=== PATIENT | female | born 1965 | race Caucasian/White ===

== ENCOUNTER 2019-08-18 12:38 | Emergency (ER) | payer OTHER, SELFPAY ==
--- NOTE | ~2019-08-18 | CT_ITS ---
EXAMINATION: CT abdomen pelvis w con DATE: 08/18/2019 13:59 INDICATION: Abdominal pain TECHNIQUE: Computed tomography (CT) of the abdomen and pelvis was performed with 100 cc Omnipaque 350 intravenous contrast. Automated exposure control and iterative reconstruction technique were employe d. Exam dose: 326.85 mGy-cm total exam DLP. COMPARISON: 07/29/2017 CT abdomen pelvis FINDINGS: Fat-containing right foramen of Bochdalek hernia. The lung bases are clear of infiltrate or consolidation. Status post gastric bypass surgery. Status post cholecystectomy. No hepatic space-occupying mass lesion is evident. There are calcified splenic granulomas. Small nons pecific hypoenhancing areas of the spleen are noted. The spleen measures almost 13 cm height, borderl ine enlarged. No hepatic or pancreatic space-occupying mass lesion is detected. Pancreatic calcifications, consiste nt with chronic pancreatitis. Normal morphology of the adrenal glands. No renal mass lesion except for stable approximately 10 mm left renal cyst.. No urinary tract calculu s or hydroureteronephrosis. There is diffuse prominence of the urinary bladder wall. Status post hysterectomy. The adnexal areas are unremarkable. There is mild atherosclerotic calcification of the abdominal aorta and no evidence of aneurysm. No in traperitoneal or retroperitoneal or pelvic mass lesion or adenopathy or ascites is detected. No bowel obstruction or intraperitoneal free air. Normal appendix. No suspicious osteolytic or osteoblastic lesions. IMPRESSION: Status post gastric bypass surgery Status post cholecystectomy Status post hysterectomy Borderline splenomegaly Chronic pancreatitis 10 mm left renal cyst Reviewed, dictated and finalized at [facility]. Reviewed, dictated and finalized at location [facility]. R PILOT
[2019-08-18 13:10] VITALS: BP 162/90; PULSE 74; RESP 16; TEMP 36.6; O2SAT 96
[2019-08-18 13:28] LABS: Basophils Percent Auto 0.4 % (0.2-1.2); Eosinophils Absolute Auto 0.1 K/mm3 (0-0.3); Eosinophils Percent Auto 2.2 % (0-4.4); Hematocrit 41.1 % (37.0-47.0); Hemoglobin 14.5 g/dL (12.0-15.0); Immature Granulocyte Absolute 0.02 K/mm3 (0.00-0.031); Immature Granulocyte Percent A 0.4 % (0-0.5); Lymphocytes Absolute Auto 1.77 K/mm3 (0.9-3.2); Lymphocytes Percent Auto 35.1 % (18.3-44.2); Mean Corpuscular HGB Conc 35.3 g/dl (32-36); Mean Platelet Volume 9.4 fl (7.4-10.4); Monocytes Absolute Auto 0.3 K/mm3 (0.1-0.6); Monocytes Percent Auto 5.2 % (2.6-8.5); Neutrophils Absolute Auto 2.9 K/mm3 (1.3-6.7); Neutrophils Percent Auto 56.7 % (45.5-73.1); Platelet Count Result 179 k/mm3 (150-375); Red Blood Count 4.67 M/mm3 (4.2-5.4)
--- NOTE | 2019-08-18 13:31 | ED.GIBLEED ---
HPI - GI Bleed General Chief complaint: GI Bleed Stated complaint: abdominal pain Time Seen by Provider: 08/18/19 13:30 Source: patient Mode of arrival: ambulatory Limitations: no limitations History of Present Illness HPI Narrative: The pt is a 54 y/o female who presents to the ED c/o bloody diarrhea onset 3 days ago. Pt states she experiences these episodes a few times a day, and experiences them after she eats. Pt states that she has also experienced constant periumbilical ABD pain. Pt reports SCHWAB, fever, congestion, rhinorrhea, and sore throat. The pt denies N/V, SOB, dysuria, and hematuria. Pt notes that she smokes 0.5 PPD. Pt states that she has a previous history of heavy alcohol usage, but also notes that she has not drank for one year now. Pt states that she had a previous ulcer become perforated, which was repaired. Pt states that she takes prescription Naproxen and Omeprazole 40 mg, but does not take any anticoagulation therapy. MD complaint: blood streaked stool (Diarrhea) Onset (ago): day(s) (3) Pain Consistency: constant Context: alcohol abuse (Stopped drinking one year ago) and other (Prescription Naproxen) Associated symptoms: abdominal pain (Periumbilical), fever, headaches and other (Congestion, rhinorrhea, sore throat) Related Data Allergies Allergy/AdvReac Type Severity Reaction Status Date / Time No Known Drug Allergies Allergy Unknown Verified 08/26/17 11:01 Review of Systems Review of Systems: All systems reviewed & are unremarkable except as noted in HPI and below Constitutional: Constitutional: Reports fever(s) ENT: Reports nasal congestion, Reports nasal discharge (Rhinorrhea) and Reports sore throat Respiratory: Respiratory: Denies dyspnea Gastrointestinal: Gastrointestinal: Reports abdominal pain (Periumbilical), Reports diarrhea (Bloody), Denies nausea and Denies vomiting Genitourinary: Genitourinary: Denies hematuria and Denies dysuria Neurologic: Reports headache(s) PMFSH Past Medical History Medical History (Updated 08/18/19 @ 15:19 by Amarilis Richard MD) Depression HTN (hypertension) Perforated ulcer PUD (peptic ulcer disease) Surgical History Surgical History (Updated 08/18/19 @ 13:33 by Darryl Dumont) H/O abdominal surgery Perforated ulcer repair H/O: hysterectomy Hx of gastric bypass Family History Family History (Updated 08/01/17 @ 09:19 by DOCTOR UNKNOWN) Father Hypertension Family history of pancreatic cancer Other Cerebrovascular accident Family history of allergic disorder Family history of congestive heart failure Social History Social History (Updated 08/18/19 @ 13:42 by Darryl Dumont) Smoking packs per day: 0.5 Smoking cigarettes per day: 10.0 Smoking status: Current every day smoker Alcohol intake: former Alcohol use details: Previous history of heavy alcohol usage. Gender identity (if verbalized by the patient): Female Comments PCP: Dr. Phillips Exam Const: General: cooperative, no acute distress, alert and other (Patient is tearful) Nutritional Appearance: well nourished Orientation/consciousness: patient oriented x3 Limitations: no limitations HENMT: Mouth: Yes lip normal and Yes moist mucous membranes Resp: Effort & Inspection: normal respiratory effort Auscultation: clear to auscultation bilaterally Cardio: Rate: regular rate Rhythm: regular rhythm Peripheral pulses: dorsalis pedis present bilateral 2+ GI: GI Palp: Yes Soft to palpation, Yes Tenderness to palpation present (GI) (Diffusely), No Guarding due to palpation present (GI) and No Rebound tenderness present Auscultation: normal bowel sounds Rectal Exam: visual inspection normal, normal sphincter tone, No External hemorrhoid(s) present, No Internal hemorrhoid(s) present and heme negative stool Back/Spine/Pelvis: Back: no CVA tenderness Skin: General skin exam: normal color Neuro: General: patient oriented x3 Cognition (Neuro): normal cognitio
[2019-08-18 13:37] LABS: Partial Thromboplastin Time 22.9 SECONDS (22.3-36.8); Prothrombin Time 12.6 Seconds (11.1-14.7)
[2019-08-18 13:39] VITALS: BP 133/62; PULSE 72
[2019-08-18 13:39] LABS: Alanine Aminotransferase 30 U/L (4-35); Albumin Level 4.8 g/dL (3.5-5.1); Alkaline Phosphatase 87 U/L (38-126); Aspartate Amino Transferase 36 U/L (14-36); Bilirubin,Total 0.5 mg/dL (0.2-1.3); Blood Urea Nitrogen 17 mg/dL (7-17); Calcium 9.7 mg/dL (8.4-10.2); Carbon Dioxide 26 mmol/L (22-30); Chloride 97 mmol/L (98-107); Estimated CRCL calculation 87 ml/min; Estimated Glomerular Filt Rate > 60; Glucose 88 mg/dL (65-105); Potassium 4.7 mmol/L (3.4-5.0); Sodium 136 mmol/L (137-145)
[2019-08-18] MEDS: ONDANSETRON INJ 4 MG/2 ML VIAL IV PUSH (14:05)
[2019-08-18] MEDS: PANTOPRAZOLE SODIUM IV 40 MG VIAL IV PUSH (14:06)
[2019-08-18] MEDS: LACTATED RINGERS 1,000 ML 999 ML IV CONT (14:20)
[2019-08-18 14:23] VITALS: BP 152/83; PULSE 74
[2019-08-18 14:24] VITALS: BP 154/88; PULSE 76
--- NOTE | 2019-08-25 08:36 | PC.NURSE ---
LATE ENTRY This note is being entered to document information to the patient's record. The following information was omitted on [08/18/2019], by [UMESH Fernández]. LR 1000mL infused with a stop time of 1530.
== END 2019-08-18 16:15 | disposition home or self-care (01) ==
PROVIDERS: Emergency Provider Emergency Medicine; PCP Emergency Medicine
DX: B34.9 Viral infection, unspecified (principal); I10 Essential (primary) hypertension; Z98.84 Bariatric surgery status; Z86.711 Personal history of pulmonary embolism; F17.210 Nicotine dependence, cigarettes, uncomplicated; K86.1 Other chronic pancreatitis; N28.1 Cyst of kidney, acquired
CPT/HCPCS: 36415; 74177; 80053; 85025; 85610; 85730; 87804; 96361; 96374; 96375; 99284; C9113; J0131; J2405; J7120; Q9967

== ENCOUNTER → 2019-11-27 14:06 | Outpatient (CLI) | payer OTHER, SELFPAY ==
--- NOTE | ~2019-11-27 | XR_ITS ---
XR chest 2V DATE: 11/27/2019 14:34 INDICATION: Cough for one month. TECHNIQUE: 2 views COMPARISON: 04/20/2018 one view chest FINDINGS: Normal heart size. No hilar or mediastinal enlargement. No pulmonary infiltrate or consolid ation, pleural effusion or pulmonary vascular congestion or pneumothorax. Mild dextro scoliosis of the thoracic spine. Surgical clips, right upper quadrant, consistent with cholecystectomy. IMPRESSION: No active cardiopulmonary disease Reviewed, dictated and finalized at location [facility].
--- NOTE | ~2019-11-27 | XR_ITS ---
XR knee RT min 4V DATE: 11/27/2019 14:34 INDICATION: Right knee pain for one month. It by a dog one year ago. TECHNIQUE: 4 views COMPARISON: None FINDINGS: No fracture or dislocation or joint effusion. No periosteal reaction or bone destruction. T here is minimal osteoarthritis. Subtle chondrocalcinosis is suggested. Joint spaces are relatively pr eserved. IMPRESSION: Mild osteoarthritis and suggestion of slight chondrocalcinosis Reviewed, dictated and finalized at location [facility].
== END ==
PROVIDERS: PCP Emergency Medicine; Visit Provider Emergency Medicine
DX: R05 Cough (principal); M17.11 Unilateral primary osteoarthritis, right knee
CPT/HCPCS: 71046; 73564

== ENCOUNTER 2020-02-17 13:40 | Emergency (ER) | payer OTHER, SELFPAY ==
[2020-02-17 13:51] VITALS: BP 140/62; PULSE 83; RESP 16; TEMP 37.2; O2SAT 99
--- NOTE | 2020-02-17 14:03 | ED.FEMALEGU ---
HPI - Female Genitourinary General Chief complaint: Urogenital-Female Stated complaint: uti Time Seen by Provider: 02/17/20 13:54 Source: patient and RN notes reviewed Mode of arrival: ambulatory Limitations: no limitations History of Present Illness HPI Narrative: Patient presents today with a 5-day history of dysuria and urgency. Denies hematuria but did see some blood on her pad yesterday. Denies abdominal pain, back pain, frequency. She has been taking prescribed naproxen without relief. MD elicited complaint: UTI Related Data Home Medications Medication Instructions Recorded Confirmed albuterol sulfate INHALATION 02/17/20 lisinopril 02/17/20 losartan 02/17/20 montelukast mg 02/17/20 naproxen 02/17/20 oxybutynin chloride 02/17/20 sertraline mg 02/17/20 Allergies Allergy/AdvReac Type Severity Reaction Status Date / Time No Known Drug Allergies Allergy Unknown Verified 08/26/17 11:01 Review of Systems Review of Systems: Narrative: CONSTITUTIONAL: Denies body aches, fever, chills, or sweats. EYES: Denies visual changes, redness, or discharge. ENT: Denies rhinorrhea, congestion, sore throat, or otalgia. CARDIOVASCULAR: Denies chest pain, palpitations, or edema. RESPIRATORY: Denies cough or dyspnea. GASTROINTESTINAL: Denies abdominal pain, nausea, vomiting, or diarrhea. GENITOURINARY: + Dysuria, urgency SKIN: Denies rash, itching, or wounds. MUSCULOSKELETAL: Denies back pain, joint pain, or myalgia. NEUROLOGIC: Denies headache, numbness, tingling, or weakness. PSYCH: Denies depression or anxiety. [facility] Past Medical History Medical History (Updated 02/17/20 @ 14:03 by Mallory Martinez, [facility], ) Depression HTN (hypertension) Perforated ulcer PUD (peptic ulcer disease) Surgical History Surgical History (Updated 08/18/19 @ 13:33 by Darryl uDmont) H/O abdominal surgery Perforated ulcer repair H/O: hysterectomy Hx of gastric bypass Family History Family History (Updated 08/01/17 @ 09:19 by DOCTOR UNKNOWN) Father Hypertension Family history of pancreatic cancer Other Cerebrovascular accident Family history of allergic disorder Family history of congestive heart failure Social History Social History (Updated 08/18/19 @ 13:42 by Darryl Dumont) Smoking packs per day: 0.5 Smoking cigarettes per day: 10.0 Smoking status: Current every day smoker Alcohol intake: former Gender identity (if verbalized by the patient): Female Comments At time of signature, I have reviewed and agree with nursing past medical, surgical, social and family history unless otherwise noted. Please see nursing chart for further information. There is no relevant family history pertinent to the presenting complaint Exam Narrative: Exam Narrative: GENERAL: Well-appearing, well-nourished, and in no acute distress. HEAD: Normocephalic, atraumatic. EYES: EOMI. No redness or drainage. Conjunctivae normal. ENT: Mucous membranes pink and moist. NECK: Normal AROM. CHEST: No respiratory distress. Clear to auscultation. HEART: Regular rate and rhythm. No murmur appreciated. Normal peripheral pulses. ABDOMEN: Soft, nontender, nondistended, normal active bowel sounds. -CVAT MUSCULOSKELETAL: No bony tenderness. EXTREMITIES: Normal range of motion. No edema. SKIN: Warm, dry, no rash. Capillary refill normal. Normal skin turgor. NEURO: No focal deficits. Alert and oriented x3. Gait steady. PSYCH: Normal affect. No signs of depression or anxiety. Course Vital Signs Vital signs: Vital Signs Temperature 99.0 F 02/17/20 13:51 Pulse Rate 83 02/17/20 13:51 Respiratory Rate 16 02/17/20 13:51 Blood Pressure 140/62 02/17/20 13:51 Pulse Oximetry 99 02/17/20 13:51 Temperature 99.0 F 02/17/20 13:51 Pulse Rate 83 02/17/20 13:51 Respiratory Rate 16 02/17/20 13:51 Blood Pressure 140/62 02/17/20 13:51 Pulse Oximetry 99 02/17/20 13:51 Reviewed. Pt has b
== END 2020-02-17 14:10 | disposition home or self-care (01) ==
PROVIDERS: Emergency Provider Nurse Practitioner; PCP Emergency Medicine
DX: N30.01 Acute cystitis with hematuria (principal); F17.200 Nicotine dependence, unspecified, uncomplicated; F32.9 Major depressive disorder, single episode, unspecified; I10 Essential (primary) hypertension; Z98.84 Bariatric surgery status
CPT/HCPCS: 81003; 87086; 87088; 99213; G0463

== ENCOUNTER 2020-05-27 16:27 | Emergency (ER) | payer OTHER, SELFPAY ==
[2020-05-27 16:31] VITALS: BP 152/75; PULSE 101; RESP 20; TEMP 36.4; O2SAT 98
[2020-05-27 16:55] VITALS: BP 152/75; PULSE 101; RESP 17; TEMP 36.4; O2SAT 98
[2020-05-27 17:31] LABS: Basophils Percent Auto 0.2 % (0.2-1.2); Eosinophils Percent Auto 0.4 % (0-4.4); Hematocrit 37.7 % (37.0-47.0); Hemoglobin 13.1 g/dL (12.0-15.0); Immature Granulocyte Absolute 0.02 K/mm3 (0.00-0.031); Immature Granulocyte Percent A 0.4 % (0-0.5); Lymphocytes Absolute Auto 1.23 K/mm3 (0.9-3.2); Lymphocytes Percent Auto 22.7 % (18.3-44.2); Mean Corpuscular HGB Conc 34.7 g/dl (32-36); Mean Platelet Volume 9.5 fl (7.4-10.4); Monocytes Absolute Auto 0.3 K/mm3 (0.1-0.6); Monocytes Percent Auto 5.4 % (2.6-8.5); Neutrophils Absolute Auto 3.8 K/mm3 (1.3-6.7); Neutrophils Percent Auto 70.9 % (45.5-73.1); Platelet Count Result 182 k/mm3 (150-375); Red Blood Count 3.97 M/mm3 (4.2-5.4); Red Cell Distribution Width 13.2 % (11.5-14.5); White Blood Count 5.4 K/mm3 (4.5-10.0)
[2020-05-27 17:40] LABS: Add Urine Microscopic? YES; Amorphous Sediment Urine Few; Appearance Urine Cloudy (Clear); Bilirubin Urine Negative (Negative); Blood Urine Negative (Negative); Color Urine Yellow (Yellow); Glucose Urine UA Negative (Negative); Ketones Urine Negative (Negative); Leukocyte Esterase Ur Negative LEU/UL (Negative); Mucus Urine Moderate /lpf; Nitrate Urine Negative (Negative); Protein Urine Negative (Negative); Specific Grav Ur 1.014 (1.001-1.035); Squamous Epithelial Cell Urine Rare /hpf (Few); Urobilinogen Urine Negative mg/dL (<2.0)
[2020-05-27 17:42] LABS: Ethanol < 10 mg/dL (<10)
[2020-05-27 17:43] LABS: Alanine Aminotransferase 18 U/L (4-35); Albumin Level 4.3 g/dL (3.5-5.1); Alkaline Phosphatase 73 U/L (38-126); Anion Gap 10 mmol/L (8-16); Aspartate Amino Transferase 24 U/L (14-36); Bilirubin,Total 0.4 mg/dL (0.2-1.3); Blood Urea Nitrogen 8 mg/dL (7-17); Calcium 9.6 mg/dL (8.4-10.2); Carbon Dioxide 24 mmol/L (22-30); Chloride 104 mmol/L (98-107); Estimated CRCL calculation 83 ml/min; Estimated Glomerular Filt Rate > 60; Glucose 154 mg/dL (65-105); Potassium 3.5 mmol/L (3.4-5.0); Sodium 138 mmol/L (137-145)
[2020-05-27 17:44] LABS: Amphetamine Screen Urine Negative (Negative); Barbiturate Screen Urine Negative (Negative); Benzodiazepines Screen Urine Negative (Negative); Cannabinoid Screen Urine Positive (Negative); Cocaine Screen Urine Negative (Negative); Methadone Screen Urine Negative (Negative); Opiate Screen Urine Negative (Negative); Phencyclidine Screen Urine Negative (Negative)
[2020-05-27 18:14] LABS: Thyroid Stimulating Hormone 0.424 uIU/mL (0.465-4.680)
--- NOTE | 2020-05-27 18:19 | ED.PSYCH ---
HPI - Psych General Chief Complaint: Psychiatric Symptoms Stated Complaint: htn Time Seen by Provider: 05/27/20 18:06 Source: patient Mode of arrival: ambulatory Limitations: no limitations History of Present Illness HPI Narrative: This is a 55 year old female that presents to the ER for suicidal ideations. Reports she was seen at her PCPs office today for her blood pressure. Reports upon speaking with him she was told to go to the ER for her current mental state. Reports she recently found her boyfriend . Reports since then she has been depressed and has had thoughts of harming herself. Reports she has thought about taking a bunch of pills and not waking up. Reports she gets headaches when her blood pressure is elevated and has a mild headache currently Related Data Home Medications Medication Instructions Recorded Confirmed albuterol sulfate INHALATION 02/17/20 lisinopril 02/17/20 losartan 02/17/20 montelukast mg 02/17/20 naproxen 02/17/20 oxybutynin chloride 02/17/20 sertraline mg 02/17/20 Allergies Allergy/AdvReac Type Severity Reaction Status Date / Time No Known Drug Allergies Allergy Unknown Verified 08/26/17 11:01 Review of Systems Review of Systems: Narrative: CONSTITUTIONAL: Denies fever CARDIOVASCULAR: Denies chest pain RESPIRATORY: Denies dyspnea. NEUROLOGIC: Reports headache. Denies numbness, or weakness. PSYCHIATRIC: Reports anxiety and depression. All systems reviewed & are unremarkable except as noted in HPI and below PMFSH Past Medical History Medical History (Updated 05/27/20 @ 23:30 by Michelle Kebede PA-C) Depression HTN (hypertension) Perforated ulcer PUD (peptic ulcer disease) Surgical History Surgical History (Updated 08/18/19 @ 13:33 by Darryl Dumont) H/O abdominal surgery Perforated ulcer repair H/O: hysterectomy Hx of gastric bypass Family History Family History (Updated 08/01/17 @ 09:19 by DOCTOR UNKNOWN) Father Hypertension Family history of pancreatic cancer Other Cerebrovascular accident Family history of allergic disorder Family history of congestive heart failure Social History Social History (Updated 08/18/19 @ 13:42 by Darryl Dumont) Smoking packs per day: 0.5 Smoking cigarettes per day: 10.0 Smoking status: Current every day smoker Alcohol intake: former Gender identity (if verbalized by the patient): Female Exam Narrative: Exam Narrative: GENERAL: Well-appearing, well-nourished, and in no acute distress. HEAD: Normocephalic, atraumatic. EYES: EOMI. ENT: Nares clear, no rhinorrhea or epistaxis. Mucous membranes moist. Oropharynx without tonsillar hypertrophy exudate or other lesions NECK: Supple. No adenopathy or masses. CHEST: Clear to auscultation. No respiratory distress. No wheezes rales or rhonchi HEART: Regular rate and rhythm. No murmur heard. Normal peripheral pulses. EXTREMITIES: Normal range of motion. No edema. SKIN: Warm, dry, no rash. NEURO: No focal deficits. Alert and oriented x3. PSYCH: Tearful, anxious Course Vital Signs Vital signs: Vital Signs Temperature 97.6 F 05/27/20 16:31 Pulse Rate 101 H 05/27/20 16:31 Respiratory Rate 20 05/27/20 16:31 Blood Pressure 152/75 H 05/27/20 16:31 Pulse Oximetry 98 05/27/20 16:31 Temperature 97.6 F 05/27/20 16:55 Pulse Rate 101 H 05/27/20 16:55 Respiratory Rate 17 05/27/20 16:55 Blood Pressure 152/75 H 05/27/20 16:55 Pulse Oximetry 98 05/27/20 16:55 MDM - Psych MDM Narrative Medical decision making narrative: Patient presents to the emergency department for suicidal ideations after recent traumatic event. Reports history of depression for which she takes sertraline. She does not have a past suicidal attempt or previous psychiatric hospitalization. She does report a plan to take pills in order to not wake up. Patient had initially presented to her primary's office for hypertension. After speaking with him wa
--- NOTE | 2020-05-27 18:20 | PC.NURSE ---
[facility] HAS SEEN AND EVALUATED PT AT THIS TIME AND HAS DEEMED THAT PT DOES NOT NEED SUICIDE PRECAUTIONS. [facility] STATES THAT SHE FEELS THAT PT IS NOT A FLIGHT RISK AND WILL BE OKAY TO WAIT FOR CRISIS IN ROOM 15. STATES THAT AFTER PT TSH RESULTS CRISIS CAN BE NOTIFIED.
[2020-05-27] MEDS: ACETAMINOPHEN 500 MG TABLET 1000 MG PO (18:27)
--- NOTE | 2020-05-27 18:30 | PC.NURSE ---
[facility] CONTACTED [facility] WHO STATES THEY CAN ADD ON THE T4.
--- NOTE | 2020-05-27 19:05 | PC.NURSE ---
REPORT TO UMESH STEWART AT THIS TIME SHE HAS ASSUMED PT CARE.
[2020-05-27 19:12] LABS: Free T4 Free Thyroxine 1.02 ng/mL (0.78-2.19)
[2020-05-27] MEDS: NICOTINE (*PBKC) 21 MG PATCH 1 PATCH TRANSDERM (21:16)
--- NOTE | 2020-05-28 00:18 | PC.NURSE ---
called [facility] to transfer patient. they did not have a rig available. called [phone]. [facility] called at [phone] with a new eta [phone]
--- NOTE | 2020-05-28 00:30 | PC.NURSE ---
Pt accepted at [facility] to Dr. Camacho. Report given to UMESH Gamez
--- NOTE | 2020-05-28 00:39 | PC.NURSE ---
[facility] has arrived
[2020-05-28 00:43] VITALS: BP 119/69; PULSE 72; RESP 16; TEMP 36.8; O2SAT 97
[2020-05-28 14:03] LABS: SARS-CoV-2 RNA PCR Negative
== END 2020-05-28 00:54 ==
PROVIDERS: Physician Assistant; Emergency Provider Emergency Medicine; PCP Emergency Medicine
DX: R45.851 Suicidal ideations (principal); F32.9 Major depressive disorder, single episode, unspecified; I10 Essential (primary) hypertension; Z87.11 Personal history of peptic ulcer disease; Z98.84 Bariatric surgery status; F17.210 Nicotine dependence, cigarettes, uncomplicated; Z20.828 Contact with and (suspected) exposure to other viral communicable diseases
CPT/HCPCS: 36415; 80053; 80307; 81001; 84439; 84443; 85025; 87635; 99285; A9270; C9803; U0003

== ENCOUNTER 2020-06-30 08:03 | Outpatient (CLI) | payer OTHER, SELFPAY ==
--- NOTE | ~2020-06-30 | US_ITS ---
EXAMINATION: US right upper quadrant EXAM DATE: 06/30/2020 09:15 INDICATION: Elevated alkaline phosphatase levels. TECHNIQUE: Multiple grayscale and Doppler images of the abdomen right upper quadrant were obtained (coleen y a technologist who performed the scan) and subsequently reviewed. There is no prior study for naz willams. FINDINGS: The pancreatic head and body are normal in appearance. The pancreatic tail is not visualized. The l iver has normal echogenicity and contour. Some liver surface undulations without judie nodularity. There is no evidence of intrahepatic biliary duct dilation. Portal venous flow was seen in the hepat opedal, normal direction and has normal Doppler waveform. No right-sided hydronephrosis. Common bile duct measures 3 mm, which is normal. The gallbladder fossa is unremarkable. IMPRESSION: Liver surface undulations without judie nodularity. Possible cirrhosis. Reviewed, dictated and finalized at location B. GENCY ROOM TECHNICIAN IMPRESSION: Liver surface undulations without judie nodularity. Possible cirrho sis.
== END 2020-06-30 08:04 | disposition home or self-care (01) ==
PROVIDERS: PCP Emergency Medicine; Visit Provider Emergency Medicine
DX: R79.89 Other specified abnormal findings of blood chemistry (principal)
CPT/HCPCS: 76705

== ENCOUNTER → 2020-07-28 16:35 | Outpatient (CLI) | payer OTHER, SELFPAY ==
--- NOTE | ~2020-07-28 | XR_ITS ---
EXAMINATION: XR lumbar spine 2-3V DATE: 07/28/2020 17:19 INDICATION: Low back pain TECHNIQUE: Anteroposterior and lateral views of the lumbar spine, and cone-down lateral view of the l umbosacral junction were obtained. COMPARISON: 07/21/2017 FINDINGS: There are 2 mm of stable anterolisthesis of L4 on L5 and L5 on S1. There is no fracture. Th e vertebral body heights are maintained. There is mild loss of intervertebral disc space height at L3 -4 and L5-S1. Small degenerative osteophytes project from the anterior endplates of multiple vertebra l bodies. There is mild facet osteoarthritis of the lower lumbar spine. Surgical clips in the right u pper quadrant are likely from prior cholecystectomy. Surgical changes in the left upper quadrant like ly related to gastric bypass. IMPRESSION: 1. Mild lumbar spondylosis without acute findings or significant interval change. Reviewed, dictated and finalized at location A. DATA HADOOP DEVELOPER IMPRESSION: 1. Mild lumbar spondylosis without acute findings or significant interval maranda olmos
--- NOTE | ~2020-07-28 | XR_ITS ---
EXAMINATION: XR hip LT min 2V DATE: 07/28/2020 17:19 INDICATION: Left hip pain TECHNIQUE: Anteroposterior, frog leg, and cross-table lateral views of left hip were obtained. COMPARISON: None. FINDINGS: There is moderate osteoarthritis in the medial joint space. Bone alignment is normal. There is no fracture. Surgical clips are noted in the right pelvis. IMPRESSION: 1. Moderate osteoarthritis. Reviewed, dictated and finalized at location A. KEEPER IMPRESSION: 1. Moderate osteoarthritis.
--- NOTE | ~2020-07-28 | XR_ITS ---
EXAMINATION: XR hip RT min 2V DATE: 07/28/2020 17:19 INDICATION: Right hip pain TECHNIQUE: Anteroposterior, frog leg, and cross-table lateral views of right hip were obtained. COMPARISON: None. FINDINGS: There is mild osteoarthritis. Bone alignment is normal. There is no fracture. Surgical clip s are noted in the right pelvis. IMPRESSION: 1. Mild osteoarthritis. Reviewed, dictated and finalized at location A. GRATION MANAGER IMPRESSION: 1. Mild osteoarthritis.
--- NOTE | ~2020-07-28 | XR_ITS ---
EXAMINATION: XR shoulder LT min 2V INDICATION: Left shoulder pain TECHNIQUE: Four views of the left shoulder are submitted. COMPARISON: 01/29/2015 FINDINGS: There is chronic type I acromioclavicular separation. Moderate osteoarthritis is noted in t he acromioclavicular joint. There is mild glenohumeral joint osteoarthritis. No acute fracture is humberto ntified. There are multiple healed left-sided rib fractures Soft tissues are unremarkable. IMPRESSION: 1. Osteoarthritis and chronic type I acromioclavicular separation without acute osseous abnormality o r significant interval change. Reviewed, dictated and finalized at location A. TING MACHINE OPERATOR IMPRESSION: 1. Osteoarthritis and chronic type I acromioclavicular separation without acute osseous abnormality or significant interval change.
== END ==
PROVIDERS: PCP Emergency Medicine; Visit Provider Emergency Medicine
DX: M19.012 Primary osteoarthritis, left shoulder (principal); M16.0 Bilateral primary osteoarthritis of hip; M47.896 Other spondylosis, lumbar region
CPT/HCPCS: 72100; 73030; 73502

== ENCOUNTER → 2021-01-16 15:48 | Outpatient (CLI) | payer OTHER, SELFPAY ==
--- NOTE | ~2021-01-16 | XR_ITS ---
EXAMINATION: XR knee LT min 4V DATE: 01/16/2021 16:03 INDICATION: Left knee pain. Injury. TECHNIQUE: 4 views of left knee were obtained. COMPARISON: None. FINDINGS: Bone alignment is normal. No fracture. There is mild tricompartmental osteoarthritis. There is chondrocalcinosis of the menisci. No knee joint effusion. IMPRESSION: 1. Mild left knee osteoarthritis. Reviewed, dictated and finalized at location A.
== END ==
PROVIDERS: PCP Emergency Medicine; Visit Provider Emergency Medicine
DX: M17.12 Unilateral primary osteoarthritis, left knee (principal)
CPT/HCPCS: 73564

== ENCOUNTER 2021-01-22 15:05 | Emergency (ER) | payer OTHER, SELFPAY ==
--- NOTE | ~2021-01-22 | XR_ITS ---
XR knee LT 2V DATE: 01/22/2021 15:24 INDICATION: Twisting injury. [place] a pop in the left knee, medial knee pain. TECHNIQUE: AP and lateral views COMPARISON: 01/16/2021 left knee FINDINGS: No fracture or dislocation or joint effusion. No periosteal reaction or bone destruction. There is chondrocalcinosis, demonstrated to better advantage on 01/26/2021 examination. Joint spaces a ppear relatively well preserved. IMPRESSION: No fracture or dislocation or joint effusion Chondrocalcinosis Reviewed, dictated and finalized at location A.
[2021-01-22 15:13] VITALS: BP 157/84; PULSE 86; RESP 18; TEMP 36.9; O2SAT 99
--- NOTE | 2021-01-22 17:25 | ED.LOWEXIN ---
HPI - Extremity Injury (Lower) General Chief Complaint: Extremity Injury, Lower Stated Complaint: L Knee pain Time Seen by Provider: 01/22/21 16:36 Source: patient Mode of arrival: ambulatory Limitations: no limitations History of Present Illness HPI Narrative: This is a 55-year-old female that presents to the emergency department for left knee pain x1 week. Reports a twisting injury to the knee. She felt a pop at the time of injury. Since she has had pain on the medial side of the knee. Worse with movement and relieved with rest. Denies decreased range of motion or numbness. Related Data Home Medications Medication Instructions Recorded Confirmed albuterol sulfate INHALATION 02/17/20 lisinopril 02/17/20 losartan 02/17/20 montelukast mg 02/17/20 naproxen 02/17/20 oxybutynin chloride 02/17/20 sertraline mg 02/17/20 Allergies Allergy/AdvReac Type Severity Reaction Status Date / Time No Known Drug Allergies Allergy Unknown Unknown Verified 01/22/21 15:16 Review of Systems Review of Systems: Narrative: CONSTITUTIONAL: Denies fever MUSCULOSKELETAL: Reports joint pain, and myalgia. NEUROLOGIC: Denies numbness, or weakness. All systems reviewed & are unremarkable except as noted in HPI and below PMFSH Past Medical History Medical History (Updated 01/22/21 @ 17:36 by Michelle Kebede PA-C) Depression HTN (hypertension) Perforated ulcer PUD (peptic ulcer disease) Surgical History Surgical History (Updated 08/18/19 @ 13:33 by Darryl Dumont) H/O abdominal surgery Perforated ulcer repair H/O: hysterectomy Hx of gastric bypass Family History Family History (Updated 08/01/17 @ 09:19 by DOCTOR UNKNOWN) Father Hypertension Family history of pancreatic cancer Other Cerebrovascular accident Family history of allergic disorder Family history of congestive heart failure Social History Social History (Updated 08/18/19 @ 13:42 by Darryl Dumont) Smoking packs per day: 0.5 Smoking cigarettes per day: 10.0 Smoking status: Current every day smoker Alcohol intake: former Alcohol use details: Previous history of heavy alcohol usage. Gender identity (if verbalized by the patient): Female Exam Narrative: Exam Narrative: GENERAL: Well-appearing, well-nourished, and in no acute distress. HEAD: Normocephalic, atraumatic. EYES: EOMI. EXTREMITIES: Normal range of motion. No obvious deformity, edema, erythema or warmth. Normal DP pulses SKIN: Warm, dry, no rash. NEURO: No focal deficits. Alert and oriented x3. PSYCH: Normal mood and affect Course Vital Signs Vital signs: Vital Signs Temperature 98.5 F 01/22/21 15:13 Pulse Rate 86 01/22/21 15:13 Respiratory Rate 18 01/22/21 15:13 Blood Pressure 157/84 H 01/22/21 15:13 Pulse Oximetry 99 01/22/21 15:13 Temperature 98.5 F 01/22/21 15:13 Pulse Rate 86 01/22/21 15:13 Respiratory Rate 18 01/22/21 15:13 Blood Pressure 157/84 H 01/22/21 15:13 Pulse Oximetry 99 01/22/21 15:13 MDM - Extremity Injury (Lower) MDM Narrative Medical decision making narrative: Patient presents the emergency department for left knee pain after an injury 1 week ago. Left knee x-ray is without acute osseous abnormalities. Patient was instructed on care of knee sprain. She is to follow-up with orthopedics. She was given warnings to return to the ER Imaging Data Radiologist's impression: ITS Impressions Knee X-Ray 01/22/21 15:27 IMPRESSION: No fracture or dislocation or joint effusion Chondrocalcinosis Critical Care Time Critical Care Time Critical Care Time: No Discharge Plan Discharge Clinical Impression: Knee sprain Qualifiers: Encounter type: initial encounter Involved ligament of knee: unspecified ligament Laterality: left Qualified Code(s): S83.92XA - Sprain of unspecified site of left knee, initial encounter Patient Disposition: Home, Self-Care Condition: Sta
[2021-01-22] MEDS: ACETAMINOPHEN 500 MG TABLET 1000 MG PO (18:01)
== END 2021-01-22 18:02 | disposition home or self-care (01) ==
PROVIDERS: Emergency Provider Emergency Medicine; PCP Emergency Medicine
DX: S83.92XA Sprain of unspecified site of left knee, initial encounter (principal); I10 Essential (primary) hypertension; F32.9 Major depressive disorder, single episode, unspecified; F17.210 Nicotine dependence, cigarettes, uncomplicated; X58.XXXA Exposure to other specified factors, initial encounter
CPT/HCPCS: 73560; 99283; A9270

== ENCOUNTER 2021-09-24 17:24 | Inpatient (IN) | payer OTHER, SELFPAY ==
[2021-09-24] VITALS (7 sets, daily range): BP systolic 95–106; BP diastolic 37–56; PULSE 65–81; RESP 16–22; TEMP 36.4–36.5; O2SAT 98–100
--- NOTE | ~2021-09-24 | XR_ITS ---
XR chest 2V DATE: 09/24/2021 17:53 INDICATION: Sternal chest pain for 2 days. Anxiety. Hypertension. Smoker. TECHNIQUE: PA and lateral views COMPARISON: 11/27/2019 PA and lateral chest FINDINGS: Old left upper rib fractures. Normal heart size. No hilar or mediastinal enlargement. No pulmonary infiltrate or consolidation, ple ural effusion or pulmonary vascular congestion or pneumothorax. Status post cholecystectomy. IMPRESSION: No active cardiopulmonary disease Status post cholecystectomy Reviewed, dictated and finalized at location A.
--- NOTE | ~2021-09-24 | CT_ITS ---
EXAMINATION: CT abdomen pelvis wo con DATE: 09/24/2021 18:30 INDICATION: Abdominal pain TECHNIQUE: Computed tomography (CT) of the abdomen and pelvis was performed without intravenous contr ast. Automated exposure control and iterative reconstruction technique were employed. Exam dose: 360 .32 mGy-cm total exam DLP. COMPARISON: August 18, 2019 CT abdomen pelvis 06/30/2020 right upper quadrant abdominal ultrasound FINDINGS: The lung bases are clear of infiltrate or consolidation. Normal heart size. No pericardial or pleural effusion. Small sliding hiatal hernia. Status post gastric bypass surgery. Status post cholecystectomy. No hepatic, splenic, pancreatic space-occupying mass lesion. There are scattered pancreatic calcifica tions consistent with chronic pancreatitis. No bile duct or pancreatic duct dilatation is detected. Normal morphology of the adrenal glands. Possible 9.5 mm left renal cyst. The kidneys otherwise appear unremarkable on this limited noncontras t examination. No urinary tract calculus or hydroureteronephrosis is detected. There is atherosclerotic calcification of the abdominal aorta but no aneurysm. No intraperitoneal or retroperitoneal or pelvic mass lesion or adenopathy or ascites is detected. The urinary bladder is unremarkable. Status post hysterectomy. No bowel obstruction or intraperitoneal free air. Small fat-containing umbilical hernia. No suspicious osteolytic or osteoblastic lesions. IMPRESSION: Chronic pancreatitis Status post cholecystectomy Status post gastric bypass surgery. Small sliding hiatal hernia Status post hysterectomy. 9.5 mm left renal cyst Reviewed, dictated and finalized at Location A. Reviewed, dictated and finalized at location A.
--- NOTE | ~2021-09-24 | XR_ITS ---
EXAMINATION: XR chest 2V DATE: 09/30/2021 16:05 INDICATION: Generalized chest pain TECHNIQUE: PA and lateral views of the chest are obtained. COMPARISON: 09/24/2021 FINDINGS: Small pleural effusions are present. There are airspace opacities of the lung bases. No pne umothorax is identified. The cardiomediastinal silhouette is normal. There is mild thoracic spondylos is. Surgical clips in the right upper quadrant are likely from prior cholecystectomy. IMPRESSION: 1. Small pleural effusions with bibasilar airspace opacities, consistent with atelectasis versus pneu monia. Reviewed, dictated and finalized at location B. IMPRESSION: 1. Small pleural effusions with bibasilar airspace opacities, consistent with a telectasis versus pneumonia.
--- NOTE | ~2021-09-24 | US_ITS ---
US abdomen limited INDICATION: Abnormal liver function tests. PROCEDURE: Realtime right upper abdominal ultrasound. COMPARISON: No prior studies for comparison. FINDINGS: Pancreas is not well visualized due to bowel gas. Liver echotexture is normal without foca l mass or intrahepatic biliary dilatation. There is normal directional flow in the portal vein. Gallbladder is surgically absent. Common bile duct measures 6 mm. IMPRESSION: 1: Unremarkable limited abdominal ultrasound. Reviewed, dictated and finalized at location B.
--- NOTE | 2021-09-24 17:28 | ECG_ITS ---
Measurements Intervals [place] Rate: 63 P: 68 VA: 120 QRS: 63 QRSD: 91 T: 49 QT: 421 QTc: 432 Interpretive Statements SINUS RHYTHM POSSIBLE LEFT ATRIAL ENLARGEMENT [-0.1mV P-WAVE IN V1/V2] NO PREVIOUS ECG AVAILABLE FOR COMPARISON Electronically Signed On 09-24-2021 18:49:41 CDT by Margarita Sanabria M.D.
--- NOTE | 2021-09-24 17:34 | ED.CHESTPAIN ---
HPI - Chest Pain General Chief Complaint: Chest Pain Stated Complaint: CP Time Seen by Provider: 09/24/21 17:25 Source: RN notes reviewed History of Present Illness HPI narrative: Patient presents emergency department from home via EMS for chest pain. Patient states symptoms been ongoing since yesterday afternoon the pain is located in the lower midsternal chest and the upper abdomen described as burning and aching in nature. States is been associated with nausea vomiting. Patient states nothing seems to make the pain better or worse she states she had nitro in route with minimal change in the pain she denies any fevers or chills diarrhea or any other symptoms Related Data Home Medications Medication Instructions Recorded Confirmed albuterol sulfate INHALATION 02/17/20 01/28/21 lisinopril 02/17/20 01/28/21 losartan 02/17/20 01/28/21 montelukast mg 02/17/20 01/28/21 naproxen 02/17/20 01/28/21 oxybutynin chloride 02/17/20 01/28/21 sertraline mg 02/17/20 01/28/21 Allergies Allergy/AdvReac Type Severity Reaction Status Date / Time No Known Drug Allergies Allergy Unknown Unknown Verified 09/24/21 17:35 Review of Systems Review of Systems: Gen.: Denies fevers or chills ENT: Denies congestion Respiratory: Denies shortness of breath or cough CV: Reports chest pain GI: Reports upper abdominal pain nausea vomiting denies diarrhea denies burning, urgency, frequency or hematuria Musculoskeletal: Denies back pain or muscle pain Neuro: Denies numbness, tingling, weakness or focal weakness Skin: Denies rash Except as documented, all other systems reviewed and negative [facility] Past Medical History Medical History Anxiety Depression HTN (hypertension) IBS (irritable bowel syndrome) Left knee pain Perforated ulcer PUD (peptic ulcer disease) Rheumatoid arthritis Sprain of medial collateral ligament of left knee Urinary frequency Wears glasses Surgical History Surgical History H/O abdominal surgery Perforated ulcer repair H/O: hysterectomy History of cholecystectomy Hx of gastric bypass Family History Family History Father Hypertension Family history of pancreatic cancer High cholesterol Mother Cerebrovascular accident Other Asthma Cervical cancer Depression Family history of allergic disorder Family history of congestive heart failure Heart disease Lung disease Neuropathy Pancreatic cancer Social History Social History Smoking packs per day: 0.35 Smoking cigarettes per day: 7.0 Years smoked: 24 Smoking pack-years: 8.40 Smoking status: Current every day smoker Alcohol intake: current Drinks per week: 3 Alcohol use details: Previous history of heavy alcohol usage. Substance use: never Substance use type: does not use Gender identity (if verbalized by the patient): Female Exam Narrative: APPEARANCE: No acute distress, nontoxic, resting in bed HEENT: Normocephalic, atraumatic, OMM RESPIRATORY: No respiratory distress, clear to auscultation bilaterally with no rhonchi wheezing or rales CARDIOVASCULAR: RRR s murmur ABDOMINAL: Soft nondistended tender palpation epigastric and right upper quadrant no tenderness left upper quadrant, left lower quadrant right lower quadrant no rebound or guarding MUSCULOSKELETAl: Moves all extremities. No clubbing, cyanosis or edema. NEURO: Awake and alert. Following commands, speech normal, no focal deficits SKIN:: Warm, dry. Normal Color PSYCHIATRIC: Normal affect/mood Course Course Emergency Course: Patient states abdominal and chest pain are resolved at this time Cussed with patient her elevated liver enzymes patient states she drinks approximately 3-4 times a week and states she drinks approximately 10-12 beer
[2021-09-24 17:47] LABS: Basophils Percent Auto 0.2 % (0.2-1.2); Eosinophils Percent Auto 0.4 % (0-4.4); Hematocrit 40.4 % (37.0-47.0); Hemoglobin 13.9 g/dL (12.0-15.0); Immature Granulocyte Absolute 0.05 K/mm3 (0.00-0.031); Immature Granulocyte Percent A 0.5 % (0-0.5); Lymphocytes Absolute Auto 1.25 K/mm3 (0.9-3.2); Lymphocytes Percent Auto 11.5 % (18.3-44.2); Mean Corpuscular HGB Conc 34.4 g/dl (32-36); Mean Corpuscular Hemoglobin 31.6 pg (26-34); Mean Corpuscular Volume 91.8 fl (80-100); Mean Platelet Volume 10.3 fl (7.4-10.4); Monocytes Absolute Auto 0.7 K/mm3 (0.1-0.6); Monocytes Percent Auto 6.2 % (2.6-8.5); Neutrophils Absolute Auto 8.8 K/mm3 (1.3-6.7); Neutrophils Percent Auto 81.2 % (45.5-73.1); Platelet Count Result 213 k/mm3 (150-375); Red Cell Distribution Width 13.5 % (11.5-14.5); White Blood Count 10.8 K/mm3 (4.5-10.0)
[2021-09-24 17:58] LABS: Prothrombin Time 12.5 Seconds (11.1-14.7)
[2021-09-24 17:59] LABS: Alanine Aminotransferase 419 U/L (4-35); Albumin Level 4.4 g/dL (3.5-5.1); Alkaline Phosphatase 380 U/L (38-126); Anion Gap 10 mmol/L (8-16); Bilirubin,Total 2.4 mg/dL (0.2-1.3); Blood Urea Nitrogen 24 mg/dL (7-17); Calcium 9.6 mg/dL (8.4-10.2); Carbon Dioxide 24 mmol/L (22-30); Chloride 104 mmol/L (98-107); Estimated CRCL calculation 23 ml/min; Estimated Glomerular Filt Rate 26; Glucose 142 mg/dL (65-110); Lipase 378 U/L (23-300); Partial Thromboplastin Time 20.4 SECONDS (22.3-36.8); Potassium 4.2 mmol/L (3.4-5.0); Sodium 138 mmol/L (137-145)
[2021-09-24 18:08] LABS: Troponin I < 0.012 ng/mL (0.000-0.034)
[2021-09-24 18:15] LABS: Aspartate Amino Transferase 1314 U/L (14-36)
[2021-09-24 18:20] LABS: Magnesium 1.7 mg/dL (1.6-2.3)
[2021-09-24] MEDS: SODIUM CHLORIDE 0.9% IV 1,000 ML 999 ML IV CONT ×2 (18:32→19:15)
[2021-09-24 18:52] LABS: Ethanol < 10 mg/dL (<10)
[2021-09-24 19:03] LABS: Creatine Kinase 81 U/L (30-135)
[2021-09-24 19:50] LABS: Add Urine Microscopic? YES; Appearance Urine Cloudy (Clear); Bacteria Urine 4+ /hpf; Bilirubin Urine 1+ (Negative); Blood Urine Negative (Negative); Color Urine Amber (Yellow); Glucose Urine UA Negative (Negative); Ketones Urine Trace mg/dL (Negative); Leukocyte Esterase Ur 2+ LEU/UL (Negative); Mucus Urine Moderate /lpf; Nitrate Urine Negative (Negative); Protein Urine 1+ mg/dL (Negative); Specific Grav Ur 1.026 (1.001-1.035); Squamous Epithelial Cell Urine Many /hpf (Few); WBC Urine 31-50 /hpf
--- NOTE | 2021-09-24 20:20 | PM.IMHP ---
H&P: HPI History of Present Illness Date/Time: 09/24/21 20:20 Chief Complaint: Right upper quadrant pain. Narrative: This is a 56-year-old female with past medical history significant for obesity, status post gastric bypass surgery, in perforated peptic ulcer status post repair, hypertension, alcohol dependence. Patient presents to the emergency room due to right upper quadrant pain pain is mostly localized to this area nonradiating she rated as 7/10 in intensity it is a nagging persistent pain has not been able to eat, has had nausea and vomiting with it, no fevers, no rigors, no chills no diarrhea. Patient has been in her usual state of health prior to this. Preliminary workup was significant for AST of 1300, ALT 400, alk phos 300, creatinine of 2. Patient takes naproxen at home to help but did not relieve it. A CT of abdomen and pelvis showed chronic pancreatitis. Patient has been admitted for further evaluation, management and treatment. Review of Systems Review of Systems: Right upper quadrant pain, nausea and vomiting. Constitutional: Constitutional: Denies chills, Denies fever(s), Denies malaise, Denies night sweats and Denies weakness Eyes: Eyes: Denies change in vision ENT: Denies dysphagia, Denies nasal congestion, Denies nasal discharge, Denies nasal obstruction and Denies odynophagia Cardiovascular: Cardiovascular: Denies irregular heart rhythm, Denies lightheadedness, Denies radiating jaw, neck or arm pain, Denies palpitations, Denies dyspnea on exertion, Denies orthopnea and Denies paroxysmal nocturnal dyspnea Respiratory: Respiratory: Denies cough, Denies excessive phlegm production and Denies dyspnea Gastrointestinal: Gastrointestinal: Reports abdominal pain (Right upper quadrant), Denies melena, Denies hematochezia, Denies dyspepsia, Denies heartburn, Reports nausea and Reports vomiting Genitourinary: Genitourinary: Denies dysuria Musculoskeletal: Musculoskeletal: Denies back pain, Denies arthralgias and Denies joint swelling Integumentary/Breasts: Skin/Breast: Denies rash Neurologic: Denies focal weakness and Denies Sensory deficit (Neuro) Endocrine: Endocrine: Denies cold intolerance, Denies heat intolerance, Denies polyphagia, Denies polydipsia and Denies palpitations Hematologic/Lymphatic: Hematologic/Lymphatic: Reports no additional hematologic/lymphatic complaints and Reports as per HPI Allergic/Immunologic: Allergic/Immunologic: Reports no additional allergic/immunologic complaints and Reports as per HPI [facility] Past Medical History Medical History (Updated 09/25/21 @ 23:37 by Jerson Painter MD) Anxiety Depression HTN (hypertension) IBS (irritable bowel syndrome) Left knee pain Perforated ulcer PUD (peptic ulcer disease) Rheumatoid arthritis Sprain of medial collateral ligament of left knee Urinary frequency Wears glasses Surgical History Surgical History H/O abdominal surgery Perforated ulcer repair H/O: hysterectomy History of cholecystectomy Hx of gastric bypass Family History Family History Father Hypertension Family history of pancreatic cancer High cholesterol Mother Cerebrovascular accident Other Asthma Cervical cancer Depression Family history of allergic disorder Family history of congestive heart failure Heart disease Lung disease Neuropathy Pancreatic cancer Social History Social History Smoking packs per day: 0.5 Smoking cigarettes per day: 10.0 Years smoked: 40 Smoking pack-years: 20.00 Smoking status: Current every day smoker Tobacco type: cigarettes Second hand tobacco smoke exposure: Yes Alcohol intake: current Drinks per week: 30 Alcohol use details: Previous history of heavy alcohol usage. Substance use: current Substance use type: marijuana Gender iden
[2021-09-24 21:08] LABS: Troponin I < 0.012 ng/mL (0.000-0.034)
[2021-09-24] MEDS: SODIUM CHLORIDE 0.9% IV 1,000 ML 125 ML IV CONT (21:53)
--- NOTE | 2021-09-24 22:33 | ADMGEN ---
This patient, Edelmira Joseph, was admitted to 2 Medical Room 259-01. Patient oriented to hospital policies and general routines including ID bracelet, bed and alarms, visiting hours, pain management, procedures, bathroom and other care routines, personal items, smoking policy, room service/diet, and visiting hours. Information on how to activate the Rapid Response Team has been discussed. Patient is encouraged to report perceived risks to care and to ask questions if they do not understand what they are told or what they should do.
[2021-09-24 23:48] LABS: Troponin I < 0.012 ng/mL (0.000-0.034)
[2021-09-25] VITALS (11 sets, daily range): BP systolic 100–103; BP diastolic 45–67; PULSE 66–77; RESP 14–16; TEMP 36.3–36.6; O2SAT 95–98
[2021-09-25] MEDS: traMADol HCL (*CRX) 50 MG TABLET PO ×2 (00:54→10:52)
[2021-09-25] MEDS: NICOTINE (*PBKC) 21 MG PATCH 1 PATCH TRANSDERM (01:15)
[2021-09-25] MEDS: SODIUM CHLORIDE 0.9% IV 1,000 ML 125 ML IV CONT ×3 (05:35→23:08)
[2021-09-25 06:05] LABS: Alanine Aminotransferase 430 U/L (4-35); Albumin Level 3.2 g/dL (3.5-5.1); Alkaline Phosphatase 260 U/L (38-126); Anion Gap 1 mmol/L (8-16); Aspartate Amino Transferase 659 U/L (14-36); Bilirubin,Total 0.6 mg/dL (0.2-1.3); Blood Urea Nitrogen 23 mg/dL (7-17); Calcium 7.9 mg/dL (8.4-10.2); Carbon Dioxide 25 mmol/L (22-30); Chloride 110 mmol/L (98-107); Estimated CRCL calculation 50 ml/min; Estimated Glomerular Filt Rate > 60; Glucose 92 mg/dL (65-110); Lipase 96 U/L (23-300); Potassium 3.8 mmol/L (3.4-5.0); Sodium 136 mmol/L (137-145)
[2021-09-25 07:55] LABS: Basophils Percent Auto 0.5 % (0.2-1.2); Eosinophils Absolute Auto 0.1 K/mm3 (0-0.3); Eosinophils Percent Auto 2.7 % (0-4.4); Hematocrit 34.6 % (37.0-47.0); Hemoglobin 11.5 g/dL (12.0-15.0); Immature Granulocyte Absolute 0.01 K/mm3 (0.00-0.031); Immature Granulocyte Percent A 0.3 % (0-0.5); Lymphocytes Absolute Auto 0.96 K/mm3 (0.9-3.2); Lymphocytes Percent Auto 26.4 % (18.3-44.2); Mean Corpuscular HGB Conc 33.2 g/dl (32-36); Mean Corpuscular Hemoglobin 31.3 pg (26-34); Mean Corpuscular Volume 94.3 fl (80-100); Mean Platelet Volume 10.9 fl (7.4-10.4); Monocytes Absolute Auto 0.2 K/mm3 (0.1-0.6); Monocytes Percent Auto 5.8 % (2.6-8.5); Neutrophils Absolute Auto 2.3 K/mm3 (1.3-6.7); Neutrophils Percent Auto 64.3 % (45.5-73.1); Platelet Count Result 148 k/mm3 (150-375); Red Blood Count 3.67 M/mm3 (4.2-5.4); Red Cell Distribution Width 13.5 % (11.5-14.5); White Blood Count 3.6 K/mm3 (4.5-10.0)
--- NOTE | 2021-09-25 09:48 | WPDGICN ---
Assessment and Plan Assessment and plan (1) Elevated LFTs: Code(s): R79.89 - Other specified abnormal findings of blood chemistry Status: Acute Assessment and Plan: Patient has markedly elevated LFTs most consistent with alcoholic liver disease. Her AST quite elevated compared to her ALT. This is improved after overnight observation. Suspect that patient has alcoholic liver disease in alcohol avoidance strongly encouraged. Follow-up LFTs can be accomplished as an outpatient. Hepatitis serologies if not already obtained will be obtained. Would advance diet as tolerated. (2) UTI (urinary tract infection): Code(s): N39.0 - Urinary tract infection, site not specified Status: Acute Assessment and Plan: Patient appears to have a urinary tract infection with significant pyuria on exam. Urine culture in broad-spectrum antibiotic treatment encourage. GI Consult Note Consult date/time: 09/25/21 09:48 HPI: Edelmira Joseph is a 56 year old female I am asked to see because of elevated LFTs. Patient reports that she had a upper abdominal pain prompting her to go to the emergency room last evening. The pain has subsequently resolved. She describes it is tightening type sensation. Patient was found to have markedly elevated LFTs on presentation. Patient drinks rather heavily. She drinks more than 10 beers a day at least 3 times a week. She has a distant history of gastric bypass surgery. She has a prior cholecystectomy. Her family history is noncontributory. This morning she denies any abdominal pain whatsoever. Review of Systems Review of Systems: All systems reviewed & are unremarkable except as noted in HPI and below PMFSH Past Medical History Medical History (Updated 09/25/21 @ 00:06 by Jerson Painter MD) Anxiety Depression HTN (hypertension) IBS (irritable bowel syndrome) Left knee pain Perforated ulcer PUD (peptic ulcer disease) Rheumatoid arthritis Sprain of medial collateral ligament of left knee Urinary frequency Wears glasses Surgical History Surgical History H/O abdominal surgery Perforated ulcer repair H/O: hysterectomy History of cholecystectomy Hx of gastric bypass Family History Family History Father Hypertension Family history of pancreatic cancer High cholesterol Mother Cerebrovascular accident Other Asthma Cervical cancer Depression Family history of allergic disorder Family history of congestive heart failure Heart disease Lung disease Neuropathy Pancreatic cancer Social History Social History Smoking packs per day: 0.5 Smoking cigarettes per day: 10.0 Years smoked: 40 Smoking pack-years: 20.00 Smoking status: Current every day smoker Tobacco type: cigarettes Second hand tobacco smoke exposure: Yes Alcohol intake: current Drinks per week: 30 Alcohol use details: Previous history of heavy alcohol usage. Substance use: current Substance use type: marijuana Gender identity (if verbalized by the patient): Female Spiritual care concerns: No Meds Home Medications and Allergies Home Medications Medication Instructions Recorded Confirmed Type losartan 50 mg PO QNOON 02/17/20 09/24/21 History montelukast 10 mg PO QNOON 02/17/20 09/24/21 History naproxen 375 mg PO Q12H PRN 02/17/20 09/24/21 History azelastine 2 spray INTRANASAL DAILY PRN 09/24/21 09/24/21 History dicyclomine 10 mg PO Q6H PRN 09/24/21 09/24/21 History diphenoxylate-atropine 1 tablet PO Q6H PRN 09/24/21 09/24/21 History ergocalciferol (vitamin D2) 50,000 unit PO WEEKLY 09/24/21 09/24/21 History fluticasone propionate 2 spray INTRANASAL DAILY PRN 09/24/21 09/24/21 History oxybutynin chloride 10 mg PO QNOON 09/24/21 09/24/21 History pantoprazole 80 mg PO QNOON 09/24/21 0
[2021-09-25 11:14] LABS: Hepatitis B Surface Antigen Negative (Negative)
[2021-09-25 11:20] LABS: HAV RESULT Negative (Negative); Hepatitis B Core IgM Result Negative (Negative)
[2021-09-25 11:32] LABS: Hepatitis C Virus Antibody Negative (Negative)
[2021-09-25] MEDS: LOSARTAN POTASSIUM 50 MG TABLET PO (12:22)
[2021-09-25] MEDS: SERTRALINE HCL 50 MG TABLET 100 MG PO (12:22)
[2021-09-25] MEDS: MONTELUKAST SODIUM 10 MG TABLET PO (12:23)
--- NOTE | 2021-09-25 14:06 | PC.NURSE ---
On 09/25/21, the student, [Valerie Cuellar, Alex Ramirez], provided care and completed [facility] documentation on this patient. I have reviewed the student's documentation and agree with the findings.
--- NOTE | 2021-09-25 14:29 | PM.IMPN ---
Progress Note: A&P Assessment and Plan (1) Elevated LFTs: Code(s): R79.89 - Other specified abnormal findings of blood chemistry Status: Acute Assessment and Plan: 09/25/2021 Interval history:Patient is a 56-year-old female with history of alcohol abuse presented with with abdominal pain transaminitis patient seen by GI and suspect most likely secondary to alcohol abuse as acute hepatitis panel is negative, GI recommended abstinent from alcohol, patient states this she will not drink from here on, is being hydrated on regular diet, will place the patient on CIWA protocol and Librium and monitor, patient also has UTI being treated with a ceftriaxone will follow-up on culture further recommendation to follow. (2) Acute renal insufficiency: Code(s): N28.9 - Disorder of kidney and ureter, unspecified Status: Acute Assessment and Plan: most likely secondary to poor p.o. intake will gently hydrate the patient and monitor (3) UTI (urinary tract infection): Code(s): N39.0 - Urinary tract infection, site not specified Status: Acute Assessment and Plan: which started the patient on ceftriaxone will follow-up urine culture and sensitivity further recommendation to follow (4) Abdominal pain, bilateral upper quadrant: Code(s): R10.11 - Right upper quadrant pain; R10.12 - Left upper quadrant pain Status: Acute Assessment and Plan: most likely secondary to alcohol abuse and transaminitis (5) Nausea and vomiting: Code(s): R11.2 - Nausea with vomiting, unspecified Status: Acute Assessment and Plan: most likely secondary to abdominal pain secondary to alcohol abuse will continue anti emetics as needed (6) Alcohol abuse: Code(s): F10.10 - Alcohol abuse, uncomplicated Status: Acute Assessment and Plan: patient is placed on CIWA protocol with Librium will monitor (7) HTN (hypertension): Code(s): I10 - Essential (primary) hypertension Status: Acute Assessment and Plan: will continue home regimen and monitor Subjective Date/time seen: 09/25/21 14:29 ED-HPI narrative: Patient presents emergency department from home via EMS for chest pain. Patient states symptoms been ongoing since yesterday afternoon the pain is located in the lower midsternal chest and the upper abdomen described as burning and aching in nature. States is been associated with nausea vomiting. Patient states nothing seems to make the pain better or worse she states she had nitro in route with minimal change in the pain she denies any fevers or chills diarrhea or any other symptoms 09/25/2021 Interval history:Patient is a 56-year-old female with history of alcohol abuse presented with with abdominal pain transaminitis patient seen by GI and suspect most likely secondary to alcohol abuse as acute hepatitis panel is negative, GI recommended abstinent from alcohol, patient states this she will not drink from here on, is being hydrated on regular diet, will place the patient on CIWA protocol and Librium and monitor, patient also has UTI being treated with a ceftriaxone will follow-up on culture further recommendation to follow. Review of Systems Review of Systems: All systems reviewed & are unremarkable except as noted in HPI and below Exam Narrative: Patient is comfortable, NAD HEENT: eyes are clear and none icteric LUNGS: normal respiratory effort ABD: not distended Lower extremities: no edema SKIN: nonjaundiced Neuro: grossly intact. Objective Data Vital Signs Vital Signs: Vital Signs - 24 hr 09/24/21 17:24 09/24/21 17:36 09/24/21 18:35 Temperature 97.6 F Pulse Rate 65 65 74 Respiratory Rate 16 18 Blood Pressure 98/51 L 106/44 L Pulse Oximetry 98 100 09/24/21 19:18 09/24/21 20:01 09/24/21 21:12 Temperature Pulse Rate 73 76 81 Respiratory Rate 22 H 19 Blood Pressure 104/56 L 95/54 L Pulse Oximetry 100 98
[2021-09-25] MEDS: FAMOTIDINE 20 MG TABLET PO (16:37)
--- NOTE | 2021-09-25 16:42 | PC.NURSE ---
pt requested pepcid early with dinner
[2021-09-25] MEDS: NAPROXEN 375 MG TABLET PO (19:57)
[2021-09-26] VITALS (9 sets, daily range): BP systolic 100–121; BP diastolic 48–82; PULSE 61–93; RESP 16–20; TEMP 36.2–36.8; O2SAT 96–97
[2021-09-26 05:33] LABS: Hematocrit 33.8 % (37.0-47.0); Mean Corpuscular HGB Conc 32.5 g/dl (32-36); Mean Corpuscular Hemoglobin 32.4 pg (26-34); Mean Corpuscular Volume 99.7 fl (80-100); Mean Platelet Volume 10.6 fl (7.4-10.4); Platelet Count Result 119 k/mm3 (150-375); Red Blood Count 3.39 M/mm3 (4.2-5.4); Red Cell Distribution Width 13.5 % (11.5-14.5); White Blood Count 3.5 K/mm3 (4.5-10.0)
[2021-09-26 05:45] LABS: Alanine Aminotransferase 243 U/L (4-35); Alkaline Phosphatase 184 U/L (38-126); Anion Gap 0 mmol/L (8-16); Aspartate Amino Transferase 145 U/L (14-36); Bilirubin,Total 0.2 mg/dL (0.2-1.3); Blood Urea Nitrogen 15 mg/dL (7-17); Calcium 7.9 mg/dL (8.4-10.2); Carbon Dioxide 24 mmol/L (22-30); Chloride 116 mmol/L (98-107); Estimated CRCL calculation 72 ml/min; Estimated Glomerular Filt Rate > 60; Glucose 86 mg/dL (65-110); Magnesium 1.7 mg/dL (1.6-2.3); Potassium 3.9 mmol/L (3.4-5.0); Sodium 140 mmol/L (137-145)
[2021-09-26] MEDS: SODIUM CHLORIDE 0.9% IV 1,000 ML 125 ML IV CONT ×3 (07:30→23:38)
[2021-09-26] MEDS: traMADol HCL (*CRX) 50 MG TABLET PO (07:31)
[2021-09-26] MEDS: NICOTINE (*PBKC) 21 MG PATCH 1 PATCH TRANSDERM (08:10)
[2021-09-26] MEDS: FAMOTIDINE 20 MG TABLET PO ×2 (08:11→20:36)
--- NOTE | 2021-09-26 09:22 | WPDGIPROGNO ---
Progress Note: A&P Assessment and Plan (1) Alcoholic hepatitis: Code(s): K70.10 - Alcoholic hepatitis without ascites Status: Acute Assessment and Plan: Patient with alcoholic hepatitis. Markedly elevated LFTs on presentation her beginning to resorb. Plan to monitor LFTs in the primary care setting after discharge. Long-term alcohol abstinence strongly encouraged in discussed with patient today. Likely this was etiology of her pain. However because of heartburn PPI or H2 august may be of benefit after discharge. Discharge when others agree. (2) UTI (urinary tract infection): Code(s): N39.0 - Urinary tract infection, site not specified Status: Acute Assessment and Plan: UTI at time of presentation may have contributed to her initial abdominal pain. She will require antibiotics and treatment for this currently instituted. (3) Alcohol abuse: Code(s): F10.10 - Alcohol abuse, uncomplicated Status: Acute Assessment and Plan: Patient long-term alcohol abuse. She will need alcohol avoidance. Support group strongly encouraged. Subjective Date/time seen: 09/26/21 09:22 Patient feels much better today. No signs of alcohol withdrawal. She denies any significant abdominal pain. She notes only a minor amount of heartburn. Review of Systems Review of Systems: All systems reviewed & are unremarkable except as noted in HPI and below Exam Narrative: Physical exam reveals patient be alert comfortable rest. HEENT exam unremarkable she is anicteric. Lungs are clear. Heart without murmur. Abdomen bowel sounds present soft nontender with no organomegaly. Objective Data Vital Signs Vital Signs: Vital Signs - 24 hr 09/25/21 12:00 09/25/21 13:59 09/25/21 16:00 Temperature 98 F Pulse Rate 77 76 66 Respiratory Rate 14 Blood Pressure 102/67 Pulse Oximetry 98 09/25/21 16:35 09/25/21 19:30 09/25/21 20:00 Temperature 97.3 F L Pulse Rate 74 67 Respiratory Rate 16 16 Blood Pressure 100/54 L 100/54 L Pulse Oximetry 97 98 95 09/25/21 20:27 09/26/21 00:00 09/26/21 04:00 Temperature Pulse Rate 68 70 66 Respiratory Rate Blood Pressure 100/54 L 100/54 L Pulse Oximetry 95 09/26/21 04:23 Temperature 97.2 F L Pulse Rate 70 Respiratory Rate 20 Blood Pressure 114/52 L Pulse Oximetry 96 Intake/Output Intake/Output: Intake & Output 09/23/21 09/24/21 09/25/21 09/26/21 23:59 23:59 23:59 23:59 Intake Total 2049 4570 1390 Balance 2049 4570 1390 Meds/Results Medications: Active Medications Generic Name Dose Route Start Last Admin Trade Name Freq PRN Reason Stop Dose Admin Azelastine HCl 2 spray 09/25/21 00:02 Azelastine Hcl Nasal 0.1% 137 Mcg/Spr 30 Ml Btl NASAL DAILY PRN Runny Nose Chlordiazepoxide HCl 25 mg 09/25/21 15:01 Chlordiazepoxide (*Crx) 25 Mg Capsule PO Q6H PRN Withdrawal Dicyclomine HCl 10 mg 09/25/21 00:02 Dicyclomine Hcl 10 Mg Capsule PO Q6H PRN abdominal cramping Diphenoxylate HCl/Atropine 1 tablet 09/25/21 00:02 Diphenoxylate/Atropine (*Crx) 2.5 Mg Tablet PO Q6H PRN Diarrhea Ergocalciferol 50,000 unit 09/27/21 09:00 Ergocalciferol 50,000 Unit Capsule PO Herron@0900 DILSHAD Famotidine 20 mg 09/25/21 21:00 09/26/21 08:11 Famotidine 20 Mg Tablet PO 20 mg Q12HR DILSHAD Administration Fluticasone Propionate 2 spray 09/25/21 00:02 Fluticasone Propionate 0.05% Na Spr 16 Gm Btl (*Bkc) NASAL DAILY PRN allergies Sodium Chloride 1,000 mls @ 125 mls/hr 09/24/21 19:30 09/26/21 07:30 Normal Saline Iv IV CONT 125 mls/hr .Q8H DILSHAD Administration Ceftriaxone Sodium/Dextrose 1 gm in 50 mls @ 100 mls/hr 09/25/21 20:00 09/25/21 20:23 Rocephin 1 Gm/D5w 50 Ml IVPB Infused Q24H DILSHAD Infusion Losartan Potassium 50 mg 09/25/21 12:00 09/25/21 12:22 Losartan Potassium 50 Mg Tablet PO 50 mg DAILY@1200 [facility] Administ
--- NOTE | 2021-09-26 10:52 | PM.IMPN ---
Progress Note: A&P Assessment and Plan (1) Elevated LFTs: Code(s): R79.89 - Other specified abnormal findings of blood chemistry Status: Acute Assessment and Plan: Likely secondary to alcohol intake Hepatitis panel in progress Continue to trend liver enzymes Right upper quadrant ultrasound in a.m. GI consult 09/25/2021 Interval history:Patient is a 56-year-old female with history of alcohol abuse presented with with abdominal pain transaminitis patient seen by GI and suspect most likely secondary to alcohol abuse as acute hepatitis panel is negative, GI recommended abstinent from alcohol, patient states this she will not drink from here on, is being hydrated on regular diet, will place the patient on CIWA protocol and Librium and monitor, patient also has UTI being treated with a ceftriaxone will follow-up on culture further recommendation to follow. 09/26/2021 Interval history:Patient is a 56-year-old female with history of alcohol abuse presented with with abdominal pain transaminitis patient seen by GI and suspect most likely secondary to alcohol abuse as acute hepatitis panel is negative, patient liver enzymes are trending down, GI recommended abstinent from alcohol, patient states this she will not drink from here on, is being hydrated on regular diet, will place the patient on CIWA protocol and Librium and monitor, patient also has UTI being treated with a ceftriaxone will culture is growing E coli ESBL resistent to several abx including ceftriaxone, will start patient on imipenem, patient will require 7day of abx 07/17, will continue to monitor will have a PT OT evaluate the patient and further recommendation to follow (2) Acute renal insufficiency: Code(s): N28.9 - Disorder of kidney and ureter, unspecified Status: Acute Assessment and Plan: Likely to be pre renal azotemia IV fluids ongoing Repeat BMP in the morning, patient creatinine is trending down (3) UTI (urinary tract infection): Code(s): N39.0 - Urinary tract infection, site not specified Status: Acute Assessment and Plan: Patient started on antibiotics Deescalate as needed (4) Abdominal pain, bilateral upper quadrant: Code(s): R10.11 - Right upper quadrant pain; R10.12 - Left upper quadrant pain Status: Acute Assessment and Plan: Patient with chronic pancreatitis Acute most likely alcoholic hepatitis. Supportive care (5) Nausea and vomiting: Code(s): R11.2 - Nausea with vomiting, unspecified Status: Acute Assessment and Plan: Supportive care (6) Alcohol abuse: Code(s): F10.10 - Alcohol abuse, uncomplicated Status: Acute Assessment and Plan: CIWA protocol as needed (7) HTN (hypertension): Code(s): I10 - Essential (primary) hypertension Status: Acute Assessment and Plan: Continue home meds (8) Tobacco dependence: Code(s): F17.200 - Nicotine dependence, unspecified, uncomplicated Status: Acute Assessment and Plan: Nicotine patch as needed Patient is down from 3 packs a day Subjective Date/time seen: 09/26/21 10:52 ED-HPI narrative: Patient presents emergency department from home via EMS for chest pain. Patient states symptoms been ongoing since yesterday afternoon the pain is located in the lower midsternal chest and the upper abdomen described as burning and aching in nature. States is been associated with nausea vomiting. Patient states nothing seems to make the pain better or worse she states she had nitro in route with minimal change in the pain she denies any fevers or chills diarrhea or any other symptoms 09/25/2021 Interval history:Patient is a 56-year-old female with history of alcohol abuse presented with with abdominal pain transaminitis patient seen by GI and suspect most likely secondary to alcohol abuse as acute hepatitis panel is negative, GI recommended abstinent from alcohol, patient states
[2021-09-26] MEDS: MONTELUKAST SODIUM 10 MG TABLET PO (11:27)
[2021-09-26] MEDS: LOSARTAN POTASSIUM 50 MG TABLET PO (11:27)
[2021-09-26] MEDS: SERTRALINE HCL 50 MG TABLET 100 MG PO (11:27)
[2021-09-26 13:52] LABS: IFOB Positive Control Positive; Immunochemical Fecal Occult Bl Negative (N)
[2021-09-26] MEDS: NAPROXEN 375 MG TABLET PO (16:07)
[2021-09-27] VITALS (13 sets, daily range): BP systolic 132–163; BP diastolic 56–79; PULSE 55–96; RESP 16–20; TEMP 36.4–36.6; O2SAT 95–100
[2021-09-27 05:12] LABS: Hematocrit 32.3 % (37.0-47.0); Hemoglobin 10.7 g/dL (12.0-15.0); Mean Corpuscular HGB Conc 33.1 g/dl (32-36); Mean Corpuscular Hemoglobin 31.8 pg (26-34); Mean Corpuscular Volume 95.8 fl (80-100); Mean Platelet Volume 11.3 fl (7.4-10.4); Platelet Count Result 114 k/mm3 (150-375); Red Blood Count 3.37 M/mm3 (4.2-5.4); Red Cell Distribution Width 13.3 % (11.5-14.5); White Blood Count 3.8 K/mm3 (4.5-10.0)
[2021-09-27] MEDS: traMADol HCL (*CRX) 50 MG TABLET PO ×2 (05:20→19:51)
[2021-09-27 05:24] LABS: Alanine Aminotransferase 165 U/L (4-35); Albumin Level 3.1 g/dL (3.5-5.1); Alkaline Phosphatase 157 U/L (38-126); Anion Gap 0 mmol/L (8-16); Aspartate Amino Transferase 74 U/L (14-36); Bilirubin,Total < 0.1 mg/dL (0.2-1.3); Blood Urea Nitrogen 13 mg/dL (7-17); Calcium 7.9 mg/dL (8.4-10.2); Carbon Dioxide 26 mmol/L (22-30); Chloride 116 mmol/L (98-107); Estimated CRCL calculation 72 ml/min; Estimated Glomerular Filt Rate > 60; Glucose 83 mg/dL (65-110); Magnesium 1.7 mg/dL (1.6-2.3); Potassium 4.3 mmol/L (3.4-5.0); Sodium 142 mmol/L (137-145)
[2021-09-27] MEDS: ERGOCALCIFEROL 50,000 UNIT CAPSULE 50000 UNITS PO (09:37)
[2021-09-27] MEDS: FAMOTIDINE 20 MG TABLET PO ×2 (09:37→19:51)
[2021-09-27] MEDS: NICOTINE (*PBKC) 21 MG PATCH 1 PATCH TRANSDERM (09:37)
--- NOTE | 2021-09-27 10:54 | PM.IMPN ---
Progress Note: A&P Assessment and Plan (1) Elevated LFTs: Code(s): R79.89 - Other specified abnormal findings of blood chemistry Status: Acute Assessment and Plan: Likely secondary to alcohol intake Hepatitis panel in progress Continue to trend liver enzymes Right upper quadrant ultrasound in a.m. GI consult 09/25/2021 Interval history:Patient is a 56-year-old female with history of alcohol abuse presented with with abdominal pain transaminitis patient seen by GI and suspect most likely secondary to alcohol abuse as acute hepatitis panel is negative, GI recommended abstinent from alcohol, patient states this she will not drink from here on, is being hydrated on regular diet, will place the patient on CIWA protocol and Librium and monitor, patient also has UTI being treated with a ceftriaxone will follow-up on culture further recommendation to follow. 09/26/2021 Interval history:Patient is a 56-year-old female with history of alcohol abuse presented with with abdominal pain transaminitis patient seen by GI and suspect most likely secondary to alcohol abuse as acute hepatitis panel is negative, patient liver enzymes are trending down, GI recommended abstinent from alcohol, patient states this she will not drink from here on, is being hydrated on regular diet, will place the patient on CIWA protocol and Librium and monitor, patient also has UTI being treated with a ceftriaxone will culture is growing E coli ESBL resistent to several abx including ceftriaxone, will start patient on imipenem, patient will require 7day of abx 07/17, will continue to monitor will have a PT OT evaluate the patient and further recommendation to follow 09/27/2021 Interval history:Patient is a 56-year-old female with history of alcohol abuse presented with with abdominal pain transaminitis patient seen by GI and suspect most likely secondary to alcohol abuse as acute hepatitis panel is negative, patient liver enzymes are trending down, GI recommended abstinent from alcohol, patient states that she will not drink from here on, is being hydrated on regular diet, will stop IVF today as patient c/o shortness of breath, placed the patient on CIWA protocol and Librium and monitor, her CIWA score is low and not requiring any Librium, patient also has UTI was treated with a ceftriaxone will culture is growing E coli ESBL resistent to several abx including ceftriaxone, will start patient on imipenem, patient will require 7day of abx 08/17, will continue to monitor will have a PT OT evaluate the patient and further recommendation to follow (2) Acute renal insufficiency: Code(s): N28.9 - Disorder of kidney and ureter, unspecified Status: Acute Assessment and Plan: Likely to be pre renal azotemia IV fluids ongoing Repeat BMP in the morning, patient creatinine is trending down (3) UTI (urinary tract infection): Code(s): N39.0 - Urinary tract infection, site not specified Status: Acute Assessment and Plan: Patient started on antibiotics Deescalate as needed (4) Abdominal pain, bilateral upper quadrant: Code(s): R10.11 - Right upper quadrant pain; R10.12 - Left upper quadrant pain Status: Acute Assessment and Plan: Patient with chronic pancreatitis Acute most likely alcoholic hepatitis. Supportive care (5) Nausea and vomiting: Code(s): R11.2 - Nausea with vomiting, unspecified Status: Acute Assessment and Plan: Supportive care (6) Alcohol abuse: Code(s): F10.10 - Alcohol abuse, uncomplicated Status: Acute Assessment and Plan: CIWA protocol as needed (7) HTN (hypertension): Code(s): I10 - Essential (primary) hypertension Status: Acute Assessment and Plan: Continue home meds (8) Tobacco dependence: Code(s): F17.200 - Nicotine dependence, unspecified, uncomplicated Status: Acute Assessment and Plan: Nicotine patch as
[2021-09-27] MEDS: MONTELUKAST SODIUM 10 MG TABLET PO (11:36)
[2021-09-27] MEDS: LOSARTAN POTASSIUM 50 MG TABLET PO (11:36)
[2021-09-27] MEDS: SERTRALINE HCL 50 MG TABLET 100 MG PO (11:36)
[2021-09-28] VITALS (9 sets, daily range): BP systolic 125–148; BP diastolic 64–74; PULSE 58–94; RESP 17–20; TEMP 36.3–36.8; O2SAT 93–98
[2021-09-28 05:23] LABS: Hematocrit 31.7 % (37.0-47.0); Hemoglobin 10.6 g/dL (12.0-15.0); Mean Corpuscular HGB Conc 33.4 g/dl (32-36); Mean Corpuscular Volume 95.8 fl (80-100); Mean Platelet Volume 10.1 fl (7.4-10.4); Platelet Count Result 106 k/mm3 (150-375); Red Blood Count 3.31 M/mm3 (4.2-5.4); Red Cell Distribution Width 13.1 % (11.5-14.5); White Blood Count 4.3 K/mm3 (4.5-10.0)
[2021-09-28 05:33] LABS: Alanine Aminotransferase 123 U/L (4-35); Alkaline Phosphatase 125 U/L (38-126); Anion Gap 0 mmol/L (8-16); Aspartate Amino Transferase 50 U/L (14-36); Bilirubin,Total 0.3 mg/dL (0.2-1.3); Blood Urea Nitrogen 11 mg/dL (7-17); Calcium 8.2 mg/dL (8.4-10.2); Carbon Dioxide 29 mmol/L (22-30); Chloride 111 mmol/L (98-107); Estimated CRCL calculation 72 ml/min; Estimated Glomerular Filt Rate > 60; Glucose 87 mg/dL (65-110); Magnesium 1.6 mg/dL (1.6-2.3); Potassium 4.4 mmol/L (3.4-5.0); Sodium 140 mmol/L (137-145)
[2021-09-28] MEDS: traMADol HCL (*CRX) 50 MG TABLET PO ×3 (08:49→23:24)
[2021-09-28] MEDS: NICOTINE (*PBKC) 21 MG PATCH 1 PATCH TRANSDERM (08:49)
[2021-09-28] MEDS: FAMOTIDINE 20 MG TABLET PO ×2 (08:49→20:16)
--- NOTE | 2021-09-28 12:14 | WPDGIPROGNO ---
Progress Note: A&P Assessment and Plan (1) Alcoholic hepatitis: Code(s): K70.10 - Alcoholic hepatitis without ascites Status: Acute Assessment and Plan: Patient admitted with alcoholic hepatitis. LFTs gradually improving. Viral serologies negative. CT scan reveals no gallstones. No other lesions evident. Evidence of previous gastric bypass. Ultrasound confirms previous cholecystectomy. Suggested continued alcohol avoidance. Disposition per primary care service. Follow-up LFTs after discharge. She should be established with primary care service after hospital discharge. (2) UTI (urinary tract infection): Code(s): N39.0 - Urinary tract infection, site not specified Status: Acute Subjective Date/time seen: 09/28/21 12:14 Patient alert comfortable this morning. Now tolerating diet. Denies abdominal pain. On treatment for urinary tract infection. Review of Systems Review of Systems: All systems reviewed & are unremarkable except as noted in HPI and below Exam Narrative: Physical exam reveals patient has abdomen be soft. Bowel sounds present soft nontender with no organomegaly present. Objective Data Vital Signs Vital Signs: Vital Signs - 24 hr 09/27/21 14:00 09/27/21 16:00 09/27/21 16:12 Temperature 97.9 F Pulse Rate 58 L 55 L Pulse Rate [Bilateral Pedal (Dorsalis Pedis) Palpation] 72 Respiratory Rate 17 Blood Pressure 163/73 H Pulse Oximetry 100 96 09/27/21 17:38 09/27/21 19:50 09/27/21 20:00 Temperature 97.5 F L Pulse Rate 78 88 Pulse Rate [Bilateral Pedal (Dorsalis Pedis) Palpation] 72 Respiratory Rate 20 Blood Pressure 134/79 148/74 H Pulse Oximetry 98 09/27/21 20:15 09/28/21 00:00 09/28/21 04:00 Temperature 98 F 97.6 F Pulse Rate 68 59 L 70 Pulse Rate [Bilateral Pedal (Dorsalis Pedis) Palpation] 72 72 Respiratory Rate 16 17 Blood Pressure 148/74 H 148/74 H 125/66 Pulse Oximetry 98 93 09/28/21 08:00 Temperature Pulse Rate 94 Pulse Rate [Bilateral Pedal (Dorsalis Pedis) Palpation] 72 Respiratory Rate Blood Pressure 125/66 Pulse Oximetry Intake/Output Intake/Output: Intake & Output 03/18/22 03/19/22 03/20/22 03/21/22 23:59 23:59 23:59 23:59 Intake Total 4570 4380 2500 340 Balance 4570 4380 2500 340 Meds/Results Medications: Active Medications Generic Name Dose Route Start Last Admin Trade Name Freq PRN Reason Stop Dose Admin Azelastine HCl 2 spray 09/25/21 00:02 Azelastine Hcl Nasal 0.1% 137 Mcg/Spr 30 Ml Btl NASAL DAILY PRN Runny Nose Chlordiazepoxide HCl 25 mg 09/25/21 15:01 Chlordiazepoxide (*Crx) 25 Mg Capsule PO Q6H PRN Withdrawal Dicyclomine HCl 10 mg 09/25/21 00:02 Dicyclomine Hcl 10 Mg Capsule PO Q6H PRN abdominal cramping Diphenoxylate HCl/Atropine 1 tablet 09/25/21 00:02 Diphenoxylate/Atropine (*Crx) 2.5 Mg Tablet PO Q6H PRN Diarrhea Docusate Sodium 100 mg 09/26/21 11:44 Docusate Sodium 100 Mg Capsule PO Q12H PRN Constipation Ergocalciferol 50,000 unit 09/27/21 09:00 09/27/21 09:37 Ergocalciferol 50,000 Unit Capsule PO 50,000 unit [place]on@0900 DILSHAD Administration Famotidine 20 mg 09/25/21 21:00 09/28/21 08:49 Famotidine 20 Mg Tablet PO 20 mg Q12HR DILSHAD Administration Fluticasone Propionate 2 spray 09/25/21 00:02 Fluticasone Propionate 0.05% Na Spr 16 Gm Btl (*Bkc) NASAL DAILY PRN allergies Imipenem/Cilastatin Sodium 500 100 mls @ 300 mls/hr 09/26/21 10:35 09/28/21 05:22 mg/ Sodium Chloride IVPB Infused Q6HR DILSHAD Infusion Losartan Potassium 50 mg 09/25/21 12:00 09/27/21 11:36 Losartan Potassium 50 Mg Tablet PO 50 mg DAILY@1200 DILSHAD Administration Miscellaneous Information 0 each 09/25/21 00:01 09/27/21 21:59 Otc Potassium Was Discontinued As Nonformulary Nutritional Supplement - Order Rx Potassium XX 10/25/21 00:00 Not Given [facility]
[2021-09-28] MEDS: DICYCLOMINE HCL 10 MG CAPSULE PO (12:20)
[2021-09-28] MEDS: MONTELUKAST SODIUM 10 MG TABLET PO (12:20)
[2021-09-28] MEDS: SERTRALINE HCL 50 MG TABLET 100 MG PO (12:20)
[2021-09-28] MEDS: NAPROXEN 375 MG TABLET PO (12:20)
[2021-09-28] MEDS: LOSARTAN POTASSIUM 50 MG TABLET PO (12:20)
--- NOTE | 2021-09-28 12:29 | PM.IMPN ---
Progress Note: A&P Assessment and Plan (1) Elevated LFTs: Code(s): R79.89 - Other specified abnormal findings of blood chemistry Status: Acute Assessment and Plan: Likely secondary to alcohol intake Hepatitis panel in progress Continue to trend liver enzymes Right upper quadrant ultrasound in a.m. GI consult 09/25/2021 Interval history:Patient is a 56-year-old female with history of alcohol abuse presented with with abdominal pain transaminitis patient seen by GI and suspect most likely secondary to alcohol abuse as acute hepatitis panel is negative, GI recommended abstinent from alcohol, patient states this she will not drink from here on, is being hydrated on regular diet, will place the patient on CIWA protocol and Librium and monitor, patient also has UTI being treated with a ceftriaxone will follow-up on culture further recommendation to follow. 09/26/2021 Interval history:Patient is a 56-year-old female with history of alcohol abuse presented with with abdominal pain transaminitis patient seen by GI and suspect most likely secondary to alcohol abuse as acute hepatitis panel is negative, patient liver enzymes are trending down, GI recommended abstinent from alcohol, patient states this she will not drink from here on, is being hydrated on regular diet, will place the patient on CIWA protocol and Librium and monitor, patient also has UTI being treated with a ceftriaxone will culture is growing E coli ESBL resistent to several abx including ceftriaxone, will start patient on imipenem, patient will require 7day of abx 07/17, will continue to monitor will have a PT OT evaluate the patient and further recommendation to follow 09/27/2021 Interval history:Patient is a 56-year-old female with history of alcohol abuse presented with with abdominal pain transaminitis patient seen by GI and suspect most likely secondary to alcohol abuse as acute hepatitis panel is negative, patient liver enzymes are trending down, GI recommended abstinent from alcohol, patient states that she will not drink from here on, is being hydrated on regular diet, will stop IVF today as patient c/o shortness of breath, placed the patient on CIWA protocol and Librium and monitor, her CIWA score is low and not requiring any Librium, patient also has UTI was treated with a ceftriaxone will culture is growing E coli ESBL resistent to several abx including ceftriaxone, will start patient on imipenem, patient will require 7day of abx 08/17, will continue to monitor will have a PT OT evaluate the patient and further recommendation to follow. 09/28/2021 Interval history:Patient is a 56-year-old female with history of alcohol abuse presented with with abdominal pain transaminitis patient seen by GI and suspect most likely secondary to alcohol abuse as acute hepatitis panel is negative, patient liver enzymes are trending down, GI recommended abstinent from alcohol, patient states that she will not drink from here on, is being hydrated on regular diet, will stop IVF today as patient c/o shortness of breath, placed the patient on CIWA protocol and Librium and monitor, her CIWA score is low and not requiring any Librium, patient also has UTI was treated with a ceftriaxone culture is growing E coli ESBL resistent to several abx including ceftriaxone, started patient on imipenem, patient will require 7day of abx 09/14, will continue to monitor will have a PT OT evaluate the patient and further recommendation to follow. (2) Acute renal insufficiency: Code(s): N28.9 - Disorder of kidney and ureter, unspecified Status: Acute Assessment and Plan: Likely to be pre renal azotemia IV fluids ongoing Repeat BMP in the morning, patient creatinine is trending down (3) UTI (urinary tract infection): Code(s): N39.0 - Urinary tract infection, site not specified Status: Acute Assessment and Plan: Patient started on antibiotics Deescalate as needed (4
[2021-09-29] VITALS (11 sets, daily range): BP systolic 136–146; BP diastolic 72–74; PULSE 55–91; RESP 18–20; TEMP 36.1–36.8; O2SAT 94–96
[2021-09-29 05:54] LABS: Hemoglobin 10.6 g/dL (12.0-15.0); Mean Corpuscular HGB Conc 34.2 g/dl (32-36); Mean Corpuscular Volume 93.7 fl (80-100); Mean Platelet Volume 10.2 fl (7.4-10.4); Platelet Count Result 114 k/mm3 (150-375); Red Blood Count 3.31 M/mm3 (4.2-5.4); Red Cell Distribution Width 13.1 % (11.5-14.5); White Blood Count 4.6 K/mm3 (4.5-10.0)
[2021-09-29] MEDS: NAPROXEN 375 MG TABLET PO ×2 (05:58→18:16)
[2021-09-29 06:04] LABS: Alanine Aminotransferase 86 U/L (4-35); Albumin Level 3.1 g/dL (3.5-5.1); Alkaline Phosphatase 124 U/L (38-126); Anion Gap 0 mmol/L (8-16); Aspartate Amino Transferase 32 U/L (14-36); Bilirubin,Total 0.4 mg/dL (0.2-1.3); Blood Urea Nitrogen 12 mg/dL (7-17); Calcium 8.3 mg/dL (8.4-10.2); Carbon Dioxide 30 mmol/L (22-30); Chloride 108 mmol/L (98-107); Estimated CRCL calculation 72 ml/min; Estimated Glomerular Filt Rate > 60; Glucose 82 mg/dL (65-110); Magnesium 1.5 mg/dL (1.6-2.3); Sodium 138 mmol/L (137-145)
--- NOTE | 2021-09-29 09:45 | PM.IMPN ---
Progress Note: A&P Assessment and Plan (1) Elevated LFTs: Code(s): R79.89 - Other specified abnormal findings of blood chemistry Status: Acute Assessment and Plan: Probably related to alcoholic fatty liver disease and alcoholic hepatitis GI consult culture is growing E coli ESBL resistent to several abx including ceftriaxone, started patient on imipenem, patient will require 7day of abx 3/7, will continue to monitor will have a PT OT evaluate the patient and further recommendation to follow. (2) Acute renal insufficiency: Code(s): N28.9 - Disorder of kidney and ureter, unspecified Status: Acute Assessment and Plan: Likely to be pre renal azotemia Encourage hydration follow-up BMP (3) UTI (urinary tract infection): Code(s): N39.0 - Urinary tract infection, site not specified Status: Acute Assessment and Plan: culture is growing E coli ESBL resistent to several abx including ceftriaxone, started patient on imipenem, patient will require 7day of abx 4/7 if culture negative if blood cultures positive patient will require 14 days of antibiotic, I order blood culture today (4) Abdominal pain, bilateral upper quadrant: Code(s): R10.11 - Right upper quadrant pain; R10.12 - Left upper quadrant pain Status: Acute Assessment and Plan: Patient with chronic pancreatitis Acute most likely alcoholic hepatitis. Supportive care (5) Nausea and vomiting: Code(s): R11.2 - Nausea with vomiting, unspecified Status: Acute Assessment and Plan: Supportive care (6) Alcohol abuse: Code(s): F10.10 - Alcohol abuse, uncomplicated Status: Acute Assessment and Plan: CIWA protocol as needed (7) HTN (hypertension): Code(s): I10 - Essential (primary) hypertension Status: Acute Assessment and Plan: Continue home meds (8) Tobacco dependence: Code(s): F17.200 - Nicotine dependence, unspecified, uncomplicated Status: Acute Assessment and Plan: Nicotine patch as needed Patient is down from 3 packs a day Subjective Date/time seen: 09/29/21 09:45 Interval history: Patient is a 56-year-old female with history of alcohol abuse presented with with abdominal pain transaminitis patient seen by GI and suspect most likely secondary to alcohol abuse as acute hepatitis panel is negative, GI recommended abstinent from alcohol, patient states this she will not drink from here on, is being hydrated on regular diet, will place the patient on CIWA protocol and Librium and monitor, patient also has UTI being treated with a ceftriaxone her urine culture grew E coli ESBL patient started on imipenem Patient feels weak Patient denies fever headache chest pain shortness of breath I am seeing the patient for UTI Exam Narrative: Alert Chest no wheeze crackles Abdomen nontender nondistended CVS S1 + S2 Lower extremity edema Objective Data Vital Signs Vital Signs: Vital Signs - 24 hr 09/28/21 12:00 09/28/21 14:00 09/28/21 16:00 Temperature 98.2 F Pulse Rate 65 62 58 L Pulse Rate [Bilateral Pedal (Dorsalis Pedis) Palpation] 72 Respiratory Rate 18 Blood Pressure 142/64 H 142/64 H Pulse Oximetry 96 09/28/21 20:00 09/28/21 20:15 09/28/21 22:00 Temperature 97.4 F L Pulse Rate 63 59 L Pulse Rate [Bilateral Pedal (Dorsalis Pedis) Palpation] 72 Respiratory Rate 20 Blood Pressure 142/64 H 145/74 H Pulse Oximetry 98 09/29/21 00:00 09/29/21 04:00 09/29/21 06:00 Temperature 97.0 F L Pulse Rate 59 L 70 55 L Pulse Rate [Bilateral Pedal (Dorsalis Pedis) Palpation] 72 72 Respiratory Rate 18 Blood Pressure 145/74 H 145/74 H 146/74 H Pulse Oximetry 95 09/29/21 08:44 09/29/21 08:46 Temperature Pulse Rate 65 Pulse Rate [Bilateral Pedal (Dorsalis Pedis) Palpation] 70 Respiratory Rate 18 Blood Pressure Pulse Oximetry 96 Intake/Output Intake/Output: Intake & O
[2021-09-29] MEDS: NICOTINE (*PBKC) 21 MG PATCH 1 PATCH TRANSDERM (09:54)
[2021-09-29] MEDS: AZELASTINE HCL NASAL 0.1% 137 MCG/SPR 30 ML BTL 2 SPRAY NASAL (09:54)
[2021-09-29] MEDS: FAMOTIDINE 20 MG TABLET PO ×2 (09:55→21:05)
[2021-09-29] MEDS: DICYCLOMINE HCL 10 MG CAPSULE PO ×2 (09:55→18:16)
[2021-09-29] MEDS: traMADol HCL (*CRX) 50 MG TABLET PO ×2 (09:56→23:58)
[2021-09-29] MEDS: LOSARTAN POTASSIUM 50 MG TABLET PO (11:52)
[2021-09-29] MEDS: MONTELUKAST SODIUM 10 MG TABLET PO (11:52)
[2021-09-29] MEDS: SERTRALINE HCL 50 MG TABLET 100 MG PO (11:53)
[2021-09-30] VITALS: PULSE 56
[2021-09-30 04:00] VITALS: PULSE 65
[2021-09-30 04:15] VITALS: BP 146/70; PULSE 65; RESP 18; TEMP 36.6; O2SAT 94
[2021-09-30 08:00] VITALS: PULSE 71
[2021-09-30] MEDS: NICOTINE (*PBKC) 21 MG PATCH 1 PATCH TRANSDERM (08:00)
[2021-09-30] MEDS: traMADol HCL (*CRX) 50 MG TABLET PO ×2 (08:00→15:15)
[2021-09-30] MEDS: DOCUSATE SODIUM 100 MG CAPSULE PO (08:00)
[2021-09-30] MEDS: FAMOTIDINE 20 MG TABLET PO ×2 (08:01→20:29)
[2021-09-30] MEDS: ENOXAPARIN 40 MG/0.4 ML SYRINGE SUB-Q (08:01)
[2021-09-30] MEDS: MAGNESIUM SULF 2 GM/WATER 50ML 2 GM/50 ML BAG IVPB (08:07)
[2021-09-30] MEDS: SERTRALINE HCL 50 MG TABLET 100 MG PO (11:32)
[2021-09-30] MEDS: LOSARTAN POTASSIUM 50 MG TABLET PO (11:32)
[2021-09-30] MEDS: MONTELUKAST SODIUM 10 MG TABLET PO (11:32)
--- NOTE | 2021-09-30 12:50 | PM.IMPN ---
Progress Note: A&P Additional Plan 56-year-old female with history of alcohol abuse presented with with abdominal pain transaminitis. Also has ESBL UTI. 1)Abdominal Pain: Multifactorial still has pain Alcoholic hepatitis+?Gastritis from alcohol+?Chronic Pancreatitis Cut back to clear liquid diet Famotidine D/c NSAID Add pancreatic enzyme with meals Appreciate GI help Counseled for abstinence from alcohol Labs in AM 2)ANDIE: Resolved 3)Transaminitis: ?alcohol related remarkably improved Check LFT's in AM 4)ESBL UTI: c/w Imipenam for 7 days 5)Alcohol Absue: CIWA protocol Librium PRN 6)DVT ppx:lovenox 7)Code:FUll 8)Dispo:pending improvement in abdominal pain Time Spent With Patient Time with patient: 15 - 25 minutes Subjective Date/time seen: 09/30/21 12:50 c/o abdominal pain Review of Systems Review of Systems: All systems reviewed & are unremarkable except as noted in HPI and below Constitutional: Constitutional: Reports no additional constitutional complaints Eyes: Eyes: Reports no additional eye complaints ENT: Reports system reviewed and no additional complaints, except as documented Cardiovascular: Cardiovascular: Reports no additional cardiovascular complaints Respiratory: Respiratory: Reports no additional respiratory complaints Gastrointestinal: Gastrointestinal: Reports abdominal pain Musculoskeletal: Musculoskeletal: Reports no additional musculoskeletal complaints Neurologic: Reports system reviewed and no additional complaints, except as documented Exam Const: General: no acute distress HENMT: Mouth: Yes Abnormal oral and palatal mucosa present Eyes: Sclera: sclerae normal Pupils: Equal, round and reactive pupils present Neck: Neck: supple Resp: Auscultation: clear to auscultation bilaterally Cardio: Rate: regular rate Rhythm: regular rhythm GI: GI Palp: Yes Soft to palpation and Yes Tenderness to palpation present (GI) (epigastric tenderness+) Auscultation: normal bowel sounds Skin: General skin exam: normal color Neuro: Cognition (Neuro): normal cognition Psych: Mental Status: mental status grossly normal Objective Data Vital Signs Vital Signs: Vital Signs - 24 hr 09/29/21 13:56 09/29/21 16:03 09/29/21 20:00 Temperature 98 F Pulse Rate 66 72 63 Pulse Rate [Bilateral Pedal (Dorsalis Pedis) Palpation] 72 Respiratory Rate 20 Blood Pressure 136/72 Pulse Oximetry 95 09/29/21 20:22 09/30/21 00:00 09/30/21 04:00 Temperature 98.3 F Pulse Rate 62 56 L 65 Pulse Rate [Bilateral Pedal (Dorsalis Pedis) Palpation] Respiratory Rate 18 Blood Pressure 146/74 H Pulse Oximetry 94 09/30/21 04:15 09/30/21 08:00 Temperature 97.8 F Pulse Rate 65 71 Pulse Rate [Bilateral Pedal (Dorsalis Pedis) Palpation] Respiratory Rate 18 Blood Pressure 146/70 H Pulse Oximetry 94 Intake/Output Intake/Output: Intake & Output 09/27/21 09/28/21 09/29/21 09/30/21 23:59 23:59 23:59 23:59 Intake Total 2500 3080 2660 1490 Output Total 300 Balance 2500 3080 2660 1190 Meds/Results Medications: Active Medications Generic Name Dose Route Start Last Admin Trade Name Freq PRN Reason Stop Dose Admin Azelastine HCl 2 spray 09/25/21 00:02 09/29/21 09:54 Azelastine Hcl Nasal 0.1% 137 Mcg/Spr 30 Ml Btl NASAL 2 spray DAILY PRN Administration Runny Nose Chlordiazepoxide HCl 25 mg 09/25/21 15:01 Chlordiazepoxide (*Crx) 25 Mg Capsule PO Q6H PRN Withdrawal Dicyclomine HCl 10 mg 09/25/21 00:02 09/29/21 18:16 Dicyclomine Hcl 10 Mg Capsule PO 10 mg Q6H PRN Administration abdominal cramping Diphenoxylate HCl/Atropine 1 tablet 09/25/21 00:02 Diphenoxylate/Atropine (*Crx) 2.5 Mg Tablet PO Q6H PRN Diarrhea Docusate Sodium 100 mg 09/26/21 11:44 09/30/21 08:00 Docusate Sodium 100 Mg Capsule PO 100 mg Q12H PRN Administration Constipation Enoxaparin Sodium 4
[2021-09-30 14:00] VITALS: BP 146/89; PULSE 60; RESP 18; TEMP 36.4; O2SAT 96
[2021-09-30] MEDS: LIPASE/AMYLASE/PROTEASE 12,000 UNITS CAP 1 CAP PO (17:15)
[2021-09-30 20:30] VITALS: BP 140/80; PULSE 63; RESP 18; TEMP 36; O2SAT 94
[2021-10-01 04:01] VITALS: BP 147/60; PULSE 66; RESP 18; TEMP 36.6; O2SAT 96
[2021-10-01 06:33] LABS: Basophils Percent Auto 0.5 % (0.2-1.2); Eosinophils Absolute Auto 0.1 K/mm3 (0-0.3); Eosinophils Percent Auto 2.6 % (0-4.4); Hematocrit 31.6 % (37.0-47.0); Immature Granulocyte Absolute 0.01 K/mm3 (0.00-0.031); Immature Granulocyte Percent A 0.2 % (0-0.5); Lymphocytes Absolute Auto 1.19 K/mm3 (0.9-3.2); Lymphocytes Percent Auto 28.6 % (18.3-44.2); Mean Corpuscular HGB Conc 34.8 g/dl (32-36); Mean Corpuscular Hemoglobin 31.5 pg (26-34); Mean Corpuscular Volume 90.5 fl (80-100); Mean Platelet Volume 10.5 fl (7.4-10.4); Monocytes Absolute Auto 0.3 K/mm3 (0.1-0.6); Monocytes Percent Auto 7.5 % (2.6-8.5); Neutrophils Absolute Auto 2.5 K/mm3 (1.3-6.7); Neutrophils Percent Auto 60.6 % (45.5-73.1); Platelet Count Result 141 k/mm3 (150-375); Red Blood Count 3.49 M/mm3 (4.2-5.4); Red Cell Distribution Width 12.9 % (11.5-14.5); White Blood Count 4.2 K/mm3 (4.5-10.0)
[2021-10-01 06:51] LABS: Alanine Aminotransferase 49 U/L (4-35); Albumin Level 3.2 g/dL (3.5-5.1); Alkaline Phosphatase 114 U/L (38-126); Amylase 64 U/L (30-110); Anion Gap 0 mmol/L (8-16); Aspartate Amino Transferase 26 U/L (14-36); Bilirubin,Total 0.5 mg/dL (0.2-1.3); Blood Urea Nitrogen 12 mg/dL (7-17); Calcium 8.4 mg/dL (8.4-10.2); Carbon Dioxide 32 mmol/L (22-30); Chloride 108 mmol/L (98-107); Estimated CRCL calculation 55 ml/min; Estimated Glomerular Filt Rate > 60; Glucose 83 mg/dL (65-110); Lipase 24 U/L (23-300); Magnesium 1.9 mg/dL (1.6-2.3); Potassium 4.2 mmol/L (3.4-5.0); Sodium 140 mmol/L (137-145)
[2021-10-01] MEDS: FAMOTIDINE 20 MG TABLET PO (08:08)
[2021-10-01] MEDS: LIPASE/AMYLASE/PROTEASE 12,000 UNITS CAP 1 CAP PO ×2 (08:08→12:12)
[2021-10-01] MEDS: ENOXAPARIN 40 MG/0.4 ML SYRINGE SUB-Q (08:08)
[2021-10-01] MEDS: NICOTINE (*PBKC) 21 MG PATCH 1 PATCH TRANSDERM (08:08)
[2021-10-01] MEDS: DOCUSATE SODIUM 100 MG CAPSULE PO (08:37)
--- NOTE | 2021-10-01 10:27 | PM.IMPN ---
Progress Note: A&P Assessment and Plan (1) Elevated LFTs: Code(s): R79.89 - Other specified abnormal findings of blood chemistry Status: Acute Assessment and Plan: Probably related to alcoholic fatty liver disease and alcoholic hepatitis GI consult culture is growing E coli ESBL resistent to several abx including ceftriaxone, started patient on imipenem, patient will require 7day of abx 3/7, will continue to monitor will have a PT OT evaluate the patient and further recommendation to follow. (2) Acute renal insufficiency: Code(s): N28.9 - Disorder of kidney and ureter, unspecified Status: Acute Assessment and Plan: Likely to be pre renal azotemia Encourage hydration follow-up BMP (3) UTI (urinary tract infection): Code(s): N39.0 - Urinary tract infection, site not specified Status: Acute Assessment and Plan: culture is growing E coli ESBL resistent to several abx including ceftriaxone, started patient on imipenem, patient will require 7day of abx 4/7 if culture negative if blood cultures positive patient will require 14 days of antibiotic, I order blood culture today (4) Abdominal pain, bilateral upper quadrant: Code(s): R10.11 - Right upper quadrant pain; R10.12 - Left upper quadrant pain Status: Acute Assessment and Plan: Patient with chronic pancreatitis Acute most likely alcoholic hepatitis. Supportive care (5) Nausea and vomiting: Code(s): R11.2 - Nausea with vomiting, unspecified Status: Acute Assessment and Plan: Supportive care (6) Alcohol abuse: Code(s): F10.10 - Alcohol abuse, uncomplicated Status: Acute Assessment and Plan: CIWA protocol as needed (7) HTN (hypertension): Code(s): I10 - Essential (primary) hypertension Status: Acute Assessment and Plan: Continue home meds (8) Tobacco dependence: Code(s): F17.200 - Nicotine dependence, unspecified, uncomplicated Status: Acute Assessment and Plan: Nicotine patch as needed Patient is down from 3 packs a day Additional Plan 56-year-old female with history of alcohol abuse presented with with abdominal pain transaminitis. Also has ESBL UTI. # Abdominal Pain: Multifactorial; Alcoholic hepatitis+?Gastritis from alcohol+?Chronic Pancreatitis Famotidine D/c NSAID Add pancreatic enzyme with meals Appreciate GI help Counseled for abstinence from alcohol elevated lipase level of 378 on admission ethyl alcohol was less than 10 Hepatitis profile was negative #ANDIE: admission creatinine of 2. Naproxen at home discontinued. Renal failure failure has resolved # Transaminitis: initial AST of 1300 ALT of 400 up in for hospital 300. ?alcohol related remarkably improved This has normalized now # status post gastric bypass surgery # ESBL UTI: UA with 31-50 WBCc/w Imipenam for 7 days # Alcohol Absue: CIWA protocol Librium PRN # thrombocytopenia stable likely due to chronic alcohol use #DVT ppx:lovenox #Code:FUll #Dispo:pending improvement in abdominal pain Subjective Date/time seen: 10/01/21 10:27 Interval history: Patient is a 56-year-old female with history of alcohol abuse presented with with abdominal pain transaminitis patient seen by GI and suspect most likely secondary to alcohol abuse as acute hepatitis panel is negative, GI recommended abstinent from alcohol, patient states this she will not drink from here on, is being hydrated on regular diet, will place the patient on CIWA protocol and Librium and monitor, patient also has UTI being treated with a ceftriaxone her urine culture grew E coli ESBL patient started on imipenem Review of Systems Review of Systems: All systems reviewed & are unremarkable except as noted in HPI and below Exam Narrative: Const: General: no acute distress HENMT: Mouth: Yes Abnormal oral and palatal mucosa pres
[2021-10-01] MEDS: traMADol HCL (*CRX) 50 MG TABLET PO (10:28)
[2021-10-01] MEDS: SERTRALINE HCL 50 MG TABLET 100 MG PO (12:11)
[2021-10-01] MEDS: MONTELUKAST SODIUM 10 MG TABLET PO (12:11)
[2021-10-01] MEDS: LOSARTAN POTASSIUM 50 MG TABLET PO (12:11)
[2021-10-01] MEDS: BISACODYL 5 MG TABLET EC PO (12:32)
--- NOTE | 2021-10-01 13:36 | PC.NURSE ---
On 10/01/21, the student, [Marcell Fang], provided care and completed [employer] documentation on this patient. I have reviewed the student's documentation and agree with the findings.
--- NOTE | 2021-10-01 13:54 | PM.DS ---
DS: Admitting Diagnosis Discharge Date 10/01/2021 Admitting Diagnosis Abdominal pain DS: Discharge Diagnosis Discharge Diagnosis (1) Elevated LFTs: Code(s): R79.89 - Other specified abnormal findings of blood chemistry Status: Acute Assessment and Plan: Probably related to alcoholic fatty liver disease and alcoholic hepatitis GI consulted and LFTs followed up with subsequent normalization during the hospital stay. Counseled on alcohol use and abstinence She also had mildly elevated lipase on admission. Likely acute on chronic pancreatitis due to chronic alcohol use. She was slowly started on a diet and was advanced as tolerated. She was able to tolerate her soft diet without any ongoing nausea vomiting. Also reported improvement in her abdominal pain significantly through the hospital stay. (2) Acute renal insufficiency: Code(s): N28.9 - Disorder of kidney and ureter, unspecified Status: Acute Assessment and Plan: Likely to be pre renal azotemia creatinine 2 on admission resolved with hydration (3) UTI (urinary tract infection): Code(s): N39.0 - Urinary tract infection, site not specified Status: Acute Assessment and Plan: Urinalysis was contaminated sample however urine culture review greater than 100,000 E coli ESBL resistent to several abx including ceftriaxone. Patient was started on imipenem and has had 5 days course of antibiotics. She is and has been otherwise asymptomatic throughout this period and hence I believe 5 days course of IV antibiotics would be sufficient to cover for this possible urinary tract infection. Will stop the antibiotics today. (4) Abdominal pain, bilateral upper quadrant: Code(s): R10.11 - Right upper quadrant pain; R10.12 - Left upper quadrant pain Status: Acute Assessment and Plan: Patient with chronic pancreatitis Acute most likely alcoholic hepatitis. Supportive care (5) Nausea and vomiting: Code(s): R11.2 - Nausea with vomiting, unspecified Status: Acute Assessment and Plan: Supportive care (6) Alcohol abuse: Code(s): F10.10 - Alcohol abuse, uncomplicated Status: Acute Assessment and Plan: CIWA protocol as needed (7) HTN (hypertension): Code(s): I10 - Essential (primary) hypertension Status: Acute Assessment and Plan: Continue home meds (8) Tobacco dependence: Code(s): F17.200 - Nicotine dependence, unspecified, uncomplicated Status: Acute Assessment and Plan: Nicotine patch as needed Patient is down from 3 packs a day DS: Summary Hospital Course Hospital Course: See above Time Spent with Patient Time attestation: Total time spent providing and/or coordinating discharge services: 45 minutes Exam Narrative: Const: General: no acute distress HENMT: Mouth: Yes Abnormal oral and palatal mucosa present Eyes: Sclera: sclerae normal Pupils: Equal, round and reactive pupils present Neck: Neck: supple Resp: Auscultation: clear to auscultation bilaterally Cardio: Rate: regular rate Rhythm: regular rhythm GI: Soft, mild tender epigastric area, all bowel sounds, no organomegaly Skin: General skin exam: normal color Neuro: Cognition (Neuro): normal cognition Psych: Mental Status: mental status grossly normal DS: Data Data Completed and Pending Labs on day of discharge: Labs from last 24 hours 10/01/21 10/01/21 06:00 06:00 WBC 4.2 L RBC 3.49 L Hgb 11.0 L Hct 31.6 L MCV 90.5 MCH 31.5 MCHC 34.8 RDW 12.9 Plt Count 141 L MPV 10.5 H Immature Gran % (Auto) 0.2 Neut % (Auto) 60.6 Lymph % (Auto) 28.6 [place] % (Auto) 7.5 Eos % (Auto) 2.6 Baso % (Auto) 0.5 Lymph # (Auto) 1.19 [place] # (Auto) 0.3 Eos # (Auto) 0.1 Baso # (Auto) 0.0 Abs Immat Gran (auto) 0.01 Absolute Neuts (auto) 2.5 Absolute Nucleated RBC 0.0 Nucleated RBC % 0.0 % Immature Plt Fraction 5.0
[2021-10-01 14:00] VITALS: BP 137/79; PULSE 70; RESP 20; TEMP 36.8; O2SAT 98
== END 2021-10-01 16:53 | disposition home or self-care (01) | DRG 282 ==
LOC: ANHED 20:00 → ANH2MED 20:11
PROVIDERS: Family Medicine; Internal Medicine; Internal Medicine Gastroenterology; Admitting Provider Internal Medicine; Emergency Provider Emergency Medicine; PCP Emergency Medicine; Visit Provider Internal Medicine
DX: K85.20 Alcohol induced acute pancreatitis without necrosis or infection (principal); K70.10 Alcoholic hepatitis without ascites; N39.0 Urinary tract infection, site not specified; B96.20 Unspecified Escherichia coli [E. coli] as the cause of diseases classified elsewhere; Z16.12 Extended spectrum beta lactamase (ESBL) resistance; K70.0 Alcoholic fatty liver; N28.9 Disorder of kidney and ureter, unspecified; I10 Essential (primary) hypertension; F17.210 Nicotine dependence, cigarettes, uncomplicated; K58.9 Irritable bowel syndrome, unspecified; M06.9 Rheumatoid arthritis, unspecified; F10.20 Alcohol dependence, uncomplicated; Z87.11 Personal history of peptic ulcer disease; Z90.710 Acquired absence of both cervix and uterus; Z90.49 Acquired absence of other specified parts of digestive tract; Z98.84 Bariatric surgery status
CPT/HCPCS: 36415; 71046; 74176; 76705; 80053; 80074; 80307; 81001; 82150; 82274; 82550; 83690; 83735; 84484; 85025; 85027; 85055; 85610; 85730; 87040; 87077; 87086; 87088; 87186; 93005; 96361; 96365; 99285; A9270; G0378; G0379; J0696; J0743; J1650; J3475; J7030

== ENCOUNTER → 2022-01-02 00:19 | Outpatient (CLI) | payer OTHER, SELFPAY ==
[2022-01-02 11:54] LABS: SARS-CoV-2 RNA PCR Positive
== END ==
PROVIDERS: PCP Emergency Medicine; Visit Provider Emergency Medicine
DX: U07.1 COVID-19 (principal)
CPT/HCPCS: C9803; U0003; U0005

== ENCOUNTER 2022-01-05 19:29 | Emergency (ER) | payer OTHER, SELFPAY ==
--- NOTE | ~2022-01-05 | XR_ITS ---
EXAMINATION: XR chest 2V Exam Date/Time: 01/05/2022 20:14 CDT HISTORY: cough sob. hx hypertension Comparison: 09/30/2021. RESULT: Lines, tubes, and devices: Cholecystectomy clips. Lungs and pleura: Clear. Cardiomediastinal silhouette: Stable cardiomediastinal silhouette. Other: No acute osseous or upper abdominal finding. IMPRESSION: No acute cardiopulmonary process. Reviewed, dictated and finalized at location K.
[2022-01-05 19:36] VITALS: BP 142/77; PULSE 93; RESP 18; TEMP 36.4; O2SAT 98
--- NOTE | 2022-01-05 21:49 | ED.SOB ---
HPI - SOB/Dyspnea General Chief Complaint: Shortness of Breath/Dyspnea <Mariangel Timmons MD - Last Filed: 01/05/22 22:52> Stated Complaint: shortness of breath x today <Mariangel Timmons MD - Last Filed: 01/05/22 22:52> Time Seen by Provider: 01/05/22 21:46 <Mariangel Timmons MD - Last Filed: 01/05/22 22:52> History of Present Illness HPI Narrative: cough congestion for a week hasn't smoked due to this f/c at home not here no covid or flu vaccine no travel or sick contacts h/o pred/inhaler in past no other cp/sweaing/n/v/d/neck or back pain just feels congested. no leg swelling or pain <Mariangel Timmons MD - Last Filed: 01/05/22 22:52> Related Data Home Medications: Home Medications Medication Instructions Recorded Confirmed losartan 50 mg tablet 50 mg PO QNOON 02/17/20 09/24/21 montelukast 10 mg tablet 10 mg PO QNOON 02/17/20 09/24/21 azelastine 137 mcg (0.1 %) nasal 2 spray intranasal DAILY PRN Runny 09/24/21 09/24/21 spray aerosol Nose dicyclomine 10 mg capsule 10 mg PO Q6H PRN abdominal cramping 09/24/21 09/24/21 diphenoxylate-atropine 2.5 1 tablet PO Q6H PRN Diarrhea 09/24/21 09/24/21 mg-0.025 mg tablet ergocalciferol (vitamin D2) 1,250 50,000 unit PO WEEKLY 09/24/21 09/24/21 mcg (50,000 unit) capsule fluticasone propionate 50 2 spray intranasal DAILY PRN 09/24/21 09/24/21 mcg/actuation nasal allergies spray,suspension oxybutynin chloride 10 mg 10 mg PO QNOON 09/24/21 09/24/21 tablet,extended release 24 hr pantoprazole 40 mg tablet,delayed 80 mg PO QNOON 09/24/21 09/24/21 release potassium 99 mg tablet 99 mg PO DAILY PRN muscle cramps 09/24/21 09/24/21 sertraline 100 mg tablet 100 mg PO QNOON 09/24/21 09/24/21 <Mariangel Timmons MD - Last Filed: 01/05/22 22:52> Allergies/Adverse Reactions: Allergies Allergy/AdvReac Type Severity Reaction Status Date / Time No Known Drug Allergies Allergy Unknown Unknown Verified 09/24/21 17:35 <Mariangel Timmons MD - Last Filed: 01/05/22 22:52> Review of Systems Constitutional: Comments: CONSTITUTIONAL: has fever, chills, no sweats. EYES: Denies visual changes, redness, or discharge. ENT: Denies rhinorrhea,, sore throat, or otalgia. has congestion however CARDIOVASCULAR: Denies chest pain, palpitations, or edema. RESPIRATORY: has cough for a week then dyspnea last few days. GASTROINTESTINAL: Denies abdominal pain, nausea, vomiting, or diarrhea. GENITOURINARY: Denies dysuria or hematuria. SKIN: Denies rash or itching. MUSCULOSKELETAL: Denies back pain, joint pain, or myalgia. NEUROLOGIC: Denies headache, numbness, or weakness. PSYCHIATRIC: Denies anxiety or depression. <Mariangel Timmons MD - Last Filed: 01/05/22 22:52> [facility] Past Medical History Medical History: Medical History (Updated 01/05/22 @ 23:30 by David Crawford MD) Anxiety Depression HTN (hypertension) IBS (irritable bowel syndrome) Left knee pain Perforated ulcer PUD (peptic ulcer disease) Rheumatoid arthritis Sprain of medial collateral ligament of left knee Urinary frequency Wears glasses <Mariangel Timmons MD - Last Filed: 01/05/22 22:52> Surgical History Surgical History: Surgical History H/O abdominal surgery Perforated ulcer repair H/O: hysterectomy History of cholecystectomy Hx of gastric bypass <Mariangel Timmons MD - Last Filed: 01/05/22 22:52> Family History Family History: Family History Father Hypertension Family history of pancreatic cancer High cholesterol Mother Cerebrovascular accident Other Asthma Cervical cancer Depression Family history of allergic disorder Family history of congestive heart failure Heart disease Lung disease Neuropathy Pancreatic cancer <Mariangel Timmons MD - Last Filed: 01/05/22 22:52> Social History Social History: Social History (
[2022-01-05] MEDS: ALBUTEROL SULFATE (*SP) INHALER 2 PUFF INHALATION (22:23)
[2022-01-05 22:29] VITALS: BP 125/57; PULSE 75; RESP 18; O2SAT 98
[2022-01-05] MEDS: predniSONE 20 MG TABLET 60 MG PO (22:30)
[2022-01-05 23:18] LABS: Influenza A QL RT-PCR Negative (Negative); Influenza B QL RT-PCR Negative (Negative); SARS-CoV-2 RNA PCR Positive
[2022-01-05 23:49] VITALS: BP 114/63; PULSE 67; RESP 18; O2SAT 98
== END 2022-01-05 23:50 | disposition home or self-care (01) ==
PROVIDERS: Emergency Provider Emergency Medicine; PCP Emergency Medicine
DX: U07.1 COVID-19 (principal); R05.9 Cough, unspecified; M06.9 Rheumatoid arthritis, unspecified; F41.9 Anxiety disorder, unspecified; F32.A Depression, unspecified; K58.9 Irritable bowel syndrome, unspecified; Z87.11 Personal history of peptic ulcer disease; Z98.84 Bariatric surgery status; F17.210 Nicotine dependence, cigarettes, uncomplicated
CPT/HCPCS: 71046; 87502; 99283; A9270; C9803; J7512; U0003; U0005

== ENCOUNTER 2022-01-07 14:14 | Emergency (ER) | payer OTHER, SELFPAY ==
[2022-01-07] VITALS (26 sets, daily range): BP systolic 108–144; BP diastolic 53–66; PULSE 63–77; RESP 13–27; TEMP 36.4–36.8; O2SAT 95–97
--- NOTE | ~2022-01-07 | CT_ITS ---
EXAMINATION: CT abdomen pelvis w con INDICATION: Nausea and vomiting TECHNIQUE: Computed tomographic images of the abdomen and pelvis were obtained after the administrati on of 100 cc of Omnipaque 350 intravenous contrast. The dose-length product (DLP) was 400.13 mGy-cm. Automated exposure control and iterative reconstruction technique were employed. COMPARISON: 09/24/2021 FINDINGS: The lung bases are clear. The heart size is normal. There is a small sliding hiatal hernia. Changes of gastric bypass are noted. The gallbladder is surgically absent. There is mild enlargement of the common bile duct and central intrahepatic ducts which is likely due to post cholecystectomy s bear. Punctate calcifications in an otherwise normal spleen likely represent healed granulomatous dis ease. The liver, pancreas, and adrenal glands are normal. The right kidney is unremarkable. There is 1.3 cm cyst of the left kidney. No pathologically enlarged abdominal or pelvic lymph nodes are identi fied. There is no free intraperitoneal gas or evidence of bowel obstruction. The appendix is normal. IMPRESSION: 1. No CT correlate for the patient's symptoms. Reviewed, dictated and finalized at location F.
--- NOTE | 2022-01-07 14:28 | PC.NURSE ---
urine preg canceled due to pmh of hyster
[2022-01-07 14:31] LABS: Basophils Percent Auto 0.2 % (0.2-1.2); Hematocrit 35.8 % (37.0-47.0); Hemoglobin 12.7 g/dL (12.0-15.0); Immature Granulocyte Absolute 0.06 K/mm3 (0.00-0.031); Immature Granulocyte Percent A 0.9 % (0-0.5); Lymphocytes Absolute Auto 0.64 K/mm3 (0.9-3.2); Lymphocytes Percent Auto 9.7 % (18.3-44.2); Mean Corpuscular HGB Conc 35.5 g/dl (32-36); Mean Corpuscular Hemoglobin 31.5 pg (26-34); Mean Corpuscular Volume 88.8 fl (80-100); Mean Platelet Volume 10.7 fl (7.4-10.4); Monocytes Absolute Auto 0.3 K/mm3 (0.1-0.6); Monocytes Percent Auto 3.8 % (2.6-8.5); Neutrophils Absolute Auto 5.6 K/mm3 (1.3-6.7); Neutrophils Percent Auto 85.4 % (45.5-73.1); Platelet Count Result 186 k/mm3 (150-375); Red Blood Count 4.03 M/mm3 (4.2-5.4); White Blood Count 6.6 K/mm3 (4.5-10.0)
[2022-01-07 14:43] LABS: Appearance Urine Clear (Clear); Bilirubin Urine 1+ (Negative); Blood Urine Negative (Negative); Color Urine Amber (Yellow); Glucose Urine UA Negative (Negative); Ketones Urine Negative (Negative); Leukocyte Esterase Ur Negative LEU/UL (Negative); Nitrate Urine Negative (Negative); Protein Urine Negative (Negative)
[2022-01-07 14:45] LABS: Alanine Aminotransferase 169 U/L (6-35); Albumin Level 4.1 g/dL (3.5-5.1); Alkaline Phosphatase 155 U/L (38-126); Anion Gap 6 mmol/L (8-16); Aspartate Amino Transferase 521 U/L (14-36); Bilirubin,Total 0.9 mg/dL (0.2-1.3); Blood Urea Nitrogen 25 mg/dL (7-17); Calcium 8.6 mg/dL (8.4-10.2); Carbon Dioxide 29 mmol/L (22-30); Chloride 104 mmol/L (98-107); Estimated CRCL calculation 81 ml/min; Estimated Glomerular Filt Rate > 60; Glucose 114 mg/dL (65-110); Lipase 168 U/L (23-300); Potassium 4.1 mmol/L (3.4-5.0); Sodium 139 mmol/L (137-145)
[2022-01-07 14:53] LABS: Amorphous Sediment Urine Few; Bacteria Urine Trace /hpf; Mucus Urine Rare /lpf; RBC Urine 0-2 /hpf (0-2); Squamous Epithelial Cell Urine Rare /hpf (Few); WBC Urine 0-3 /hpf
[2022-01-07 14:54] LABS: Add Urine Microscopic? YES
--- NOTE | 2022-01-07 15:17 | ECG_ITS ---
Measurements Intervals [place] Rate: 58 P: 55 DE: 117 QRS: 64 QRSD: 86 T: 31 QT: 419 QTc: 412 Interpretive Statements SINUS BRADYCARDIA WITH SHORT DE INTERVAL COMPARED TO ECG 09/24/2021 17:33:43 SINUS BRADYCARDIA NOW PRESENT Electronically Signed On 01-07-2022 18:13:40 CDT by Margarita Sanabria M.D.
--- NOTE | 2022-01-07 15:34 | ED.ABDPAIN ---
HPI - Abdominal Pain General Chief Complaint: Abdominal Pain Stated Complaint: Abd Pain Time Seen by Provider: 01/07/22 14:33 Source: patient Mode of arrival: EMS History of Present Illness HPI narrative: This is a 56-year-old female who presents to the emergency department complaining of epigastric burning, 10 on 10 pain with radiation to the right flank for the past 3 hours. Patient states she had recently taken her home medications, when she noted quick onset of the burning epigastric pain. Pain did not improve with home use of Pepto-Bismol or home oral antacids. She denies fevers, chills, chest pain, shortness of breath, vomiting or recent trauma. She states she has been able to pass gas and have bowel movement without difficulty or blood. Patient was recently evaluated here for shortness of breath, discharged with prednisone. Related Data Home Medications Medication Instructions Recorded Confirmed losartan 50 mg tablet 50 mg PO QNOON 02/17/20 09/24/21 montelukast 10 mg tablet 10 mg PO QNOON 02/17/20 09/24/21 azelastine 137 mcg (0.1 %) nasal 2 spray intranasal DAILY PRN Runny 09/24/21 09/24/21 spray aerosol Nose dicyclomine 10 mg capsule 10 mg PO Q6H PRN abdominal cramping 09/24/21 09/24/21 diphenoxylate-atropine 2.5 1 tablet PO Q6H PRN Diarrhea 09/24/21 09/24/21 mg-0.025 mg tablet ergocalciferol (vitamin D2) 1,250 50,000 unit PO WEEKLY 09/24/21 09/24/21 mcg (50,000 unit) capsule fluticasone propionate 50 2 spray intranasal DAILY PRN 09/24/21 09/24/21 mcg/actuation nasal allergies spray,suspension oxybutynin chloride 10 mg 10 mg PO QNOON 09/24/21 09/24/21 tablet,extended release 24 hr pantoprazole 40 mg tablet,delayed 80 mg PO QNOON 09/24/21 09/24/21 release potassium 99 mg tablet 99 mg PO DAILY PRN muscle cramps 09/24/21 09/24/21 sertraline 100 mg tablet 100 mg PO QNOON 09/24/21 09/24/21 Allergies Allergy/AdvReac Type Severity Reaction Status Date / Time No Known Drug Allergies Allergy Unknown Unknown Verified 09/24/21 17:35 Review of Systems Review of Systems: CONSTITUTIONAL: Denies fever, chills, or sweats. EYES: Denies visual changes, redness, or discharge. ENT: Denies rhinorrhea, congestion, sore throat, or otalgia. CARDIOVASCULAR: Denies chest pain, palpitations, or edema. RESPIRATORY: Denies cough or dyspnea. GASTROINTESTINAL: +abdominal pain, nausea, Denies vomiting, or diarrhea. GENITOURINARY: Denies dysuria or hematuria. SKIN: Denies rash or itching. MUSCULOSKELETAL: Right flank pain denies back pain, joint pain, or myalgia. NEUROLOGIC: Denies headache, numbness, dizziness, or weakness. PSYCHIATRIC: Denies anxiety or depression. [facility] Past Medical History Medical History (Updated 01/07/22 @ 19:15 by Jonathan Carreon MD) Anxiety Calculus of gallbladder with chronic cholecystitis without obstruction Chronic constipation Depression Encounter for surgical aftercare following surgery on the digestive system HTN (hypertension) IBS (irritable bowel syndrome) Left knee pain Perforated ulcer PUD (peptic ulcer disease) Rheumatoid arthritis Sprain of medial collateral ligament of left knee Tobacco abuse Urinary frequency Wears glasses Surgical History Surgical History H/O abdominal surgery Perforated ulcer repair H/O: hysterectomy History of cholecystectomy History of Wolf-en-Y gastric bypass Hx of gastric bypass Family History Family History Father Hypertension Family history of pancreatic cancer High cholesterol Mother Cerebrovascular accident Other Asthma Cervical cancer Depression Family history of allergic disorder Family history of congestive heart failure Heart disease Lung disease Neuropathy Pancreatic cancer Social History Social History Smoking packs per day: 0.5 Smoking ciga
[2022-01-07 15:51] LABS: Troponin I < 0.012 ng/mL (0.000-0.034)
[2022-01-07] MEDS: LACTATED RINGERS 1,000 ML 999 ML IV CONT (15:58)
[2022-01-07] MEDS: MORPHINE SULFATE (*CRX) 4 MG/ML INJ IV PUSH ×2 (15:58→17:14)
[2022-01-07] MEDS: LIDOCAINE HCL 2% VISC SOLN 15 ML UDC 20 ML PO (15:59)
[2022-01-07 16:00] LABS: Lactic Acid Reflex 1.8 mmol/L (0.7-2.0)
[2022-01-07] MEDS: MAG HYDROX/AL HYDROX/SIMETH 30 ML UDC PO (16:01)
[2022-01-07] MEDS: FAMOTIDINE 20 MG/2 ML VIAL IV PUSH (17:16)
[2022-01-07 18:17] LABS: Troponin I < 0.012 ng/mL (0.000-0.034)
== END 2022-01-07 19:29 | disposition home or self-care (01) ==
PROVIDERS: Emergency Medicine; Emergency Provider Preventive Medicine Aerospace Medicine; PCP Emergency Medicine
DX: R10.13 Epigastric pain (principal); R74.01 Elevation of levels of liver transaminase levels; I10 Essential (primary) hypertension; K58.9 Irritable bowel syndrome, unspecified; Z87.11 Personal history of peptic ulcer disease; M06.9 Rheumatoid arthritis, unspecified; F32.A Depression, unspecified; F41.9 Anxiety disorder, unspecified; Z98.84 Bariatric surgery status; F17.210 Nicotine dependence, cigarettes, uncomplicated
CPT/HCPCS: 36415; 74177; 80053; 81001; 83605; 83690; 84484; 85025; 93005; 96361; 96374; 96375; 96376; 99284; A9270; J2270; J7120; Q9967

== ENCOUNTER 2022-02-27 19:43 | Emergency (ER) | payer OTHER, SELFPAY ==
--- NOTE | ~2022-02-27 | CT_ITS ---
EXAMINATION: CT abdomen pelvis w con DATE: 02/27/2022 21:31 INDICATION: Generalized abdominal pain. TECHNIQUE: Computed tomography (CT) of the abdomen and pelvis was performed with 100 mL Omnipaque 350 intravenous contrast. Automated exposure control and iterative reconstruction technique were employe d. The dose-length product was 434.26 mGy-cm. COMPARISON: CT abdomen and pelvis 01/07/2022 FINDINGS: The visualized portions of the lung bases are clear without pneumonia or pleural effusion. The heart size is normal. No pericardial effusion. There is a small sliding hiatal hernia. There are surgical changes of the stomach, likely a gastric bypass procedure. The liver is normal. There are ch anges of cholecystectomy. Calcifications in the spleen are consistent with old granulomatous disease. The pancreas, adrenal glands, and right kidney are normal. There is a 10 mm cyst in left kidney. The re are no dilated loops of bowel. The appendix is normal. There are no pathologically enlarged lymph nodes. There is no free intraperitoneal fluid. There is mild thoracolumbar spondylosis. IMPRESSION: 1. Small sliding hiatal hernia. Reviewed, dictated and finalized at location A.
[2022-02-27 19:44] VITALS: BP 98/75; PULSE 101; RESP 18; TEMP 36.4; O2SAT 98
[2022-02-27 20:06] LABS: Basophils Percent Auto 0.1 % (0.2-1.2); Eosinophils Percent Auto 0.3 % (0-4.4); Hematocrit 37.3 % (37.0-47.0); Immature Granulocyte Absolute 0.04 K/mm3 (0.00-0.031); Immature Granulocyte Percent A 0.5 % (0-0.5); Lymphocytes Absolute Auto 1.53 K/mm3 (0.9-3.2); Lymphocytes Percent Auto 17.7 % (18.3-44.2); Mean Corpuscular HGB Conc 34.9 g/dl (32-36); Mean Corpuscular Hemoglobin 31.6 pg (26-34); Mean Corpuscular Volume 90.8 fl (80-100); Mean Platelet Volume 10.5 fl (7.4-10.4); Monocytes Absolute Auto 0.6 K/mm3 (0.1-0.6); Monocytes Percent Auto 6.8 % (2.6-8.5); Neutrophils Absolute Auto 6.5 K/mm3 (1.3-6.7); Neutrophils Percent Auto 74.6 % (45.5-73.1); Platelet Count Result 172 k/mm3 (150-375); Red Blood Count 4.11 M/mm3 (4.2-5.4); Red Cell Distribution Width 13.4 % (11.5-14.5); White Blood Count 8.7 K/mm3 (4.5-10.0)
[2022-02-27 20:07] LABS: Appearance Urine Clear (Clear); Bilirubin Urine Negative (Negative); Blood Urine Negative (Negative); Color Urine Yellow (Yellow); Glucose Urine UA Negative (Negative); Ketones Urine Negative (Negative); Leukocyte Esterase Ur Trace LEU/UL (Negative); Nitrate Urine Negative (Negative); Protein Urine Negative (Negative); Urobilinogen Urine 0.2 mg/dL (<2.0)
[2022-02-27 20:09] LABS: Squamous Epithelial Cell Urine Rare /hpf (Few)
[2022-02-27 20:13] LABS: Add Urine Microscopic? YES
[2022-02-27 20:14] LABS: RBC Urine 0-2 /hpf (0-2)
[2022-02-27 20:17] LABS: Alanine Aminotransferase 199 U/L (6-35); Albumin Level 4.3 g/dL (3.5-5.1); Alkaline Phosphatase 235 U/L (38-126); Anion Gap 8 mmol/L (8-16); Aspartate Amino Transferase 600 U/L (14-36); Bilirubin,Total 0.4 mg/dL (0.2-1.3); Blood Urea Nitrogen 20 mg/dL (7-17); Carbon Dioxide 31 mmol/L (22-30); Chloride 99 mmol/L (98-107); Estimated CRCL calculation 63 ml/min; Estimated Glomerular Filt Rate > 60; Glucose 86 mg/dL (65-110); Lipase 80 U/L (23-300); Potassium 3.8 mmol/L (3.4-5.0); Sodium 138 mmol/L (137-145)
--- NOTE | 2022-02-27 20:22 | ED.ABDPAIN ---
HPI - Abdominal Pain General Chief Complaint: Abdominal Pain <David Crawford MD - Last Filed: 02/28/22 12:25> Stated Complaint: abdominal pain <David Crawford MD - Last Filed: 02/28/22 12:25> Time Seen by Provider: 02/27/22 19:51 <David Crawford MD - Last Filed: 02/28/22 12:25> History of Present Illness HPI narrative: 56-year-old female presented to the emergency department for evaluation of 4 hours of epigastric pain. Patient states she does have history of chronic pancreatitis. Patient states that she did have some alcohol about 3 to 5 days ago. Patient does have prior hospital admissions related to acute on chronic pancreatitis and to alcoholic hepatitis and fatty liver disease. <David Crawford MD - Last Filed: 02/28/22 12:25> Related Data Home Medications: Home Medications Medication Instructions Recorded Confirmed losartan 50 mg tablet 50 mg PO QNOON 02/17/20 09/24/21 montelukast 10 mg tablet 10 mg PO QNOON 02/17/20 09/24/21 azelastine 137 mcg (0.1 %) nasal 2 spray intranasal DAILY PRN Runny 09/24/21 09/24/21 spray aerosol Nose dicyclomine 10 mg capsule 10 mg PO Q6H PRN abdominal cramping 09/24/21 09/24/21 diphenoxylate-atropine 2.5 1 tablet PO Q6H PRN Diarrhea 09/24/21 09/24/21 mg-0.025 mg tablet ergocalciferol (vitamin D2) 1,250 50,000 unit PO WEEKLY 09/24/21 09/24/21 mcg (50,000 unit) capsule fluticasone propionate 50 2 spray intranasal DAILY PRN 09/24/21 09/24/21 mcg/actuation nasal allergies spray,suspension oxybutynin chloride 10 mg 10 mg PO QNOON 09/24/21 09/24/21 tablet,extended release 24 hr pantoprazole 40 mg tablet,delayed 80 mg PO QNOON 09/24/21 09/24/21 release potassium 99 mg tablet 99 mg PO DAILY PRN muscle cramps 09/24/21 09/24/21 sertraline 100 mg tablet 100 mg PO QNOON 09/24/21 09/24/21 <David Crawford MD - Last Filed: 02/28/22 12:25> Allergies/Adverse Reactions: Allergies Allergy/AdvReac Type Severity Reaction Status Date / Time No Known Drug Allergies Allergy Unknown Unknown Verified 09/24/21 17:35 <David Crawford MD - Last Filed: 02/28/22 12:25> Review of Systems Review of Systems: CONSTITUTIONAL: Denies fever, chills, or sweats. EYES: Denies visual changes, redness, or discharge. ENT: Denies rhinorrhea, congestion, sore throat, or otalgia. CARDIOVASCULAR: Denies chest pain, palpitations, or edema. RESPIRATORY: Denies cough or dyspnea. GASTROINTESTINAL: Abdominal pain GENITOURINARY: Denies dysuria or hematuria. SKIN: Denies rash or itching. MUSCULOSKELETAL: Denies back pain, joint pain, or myalgia. NEUROLOGIC: Denies headache, numbness, or weakness. <David Crawford MD - Last Filed: 02/28/22 12:25> [facility] Past Medical History Medical History: Medical History (Updated 02/27/22 @ 22:08 by David Crawford MD) Anxiety Calculus of gallbladder with chronic cholecystitis without obstruction Chronic constipation Depression Encounter for surgical aftercare following surgery on the digestive system HTN (hypertension) IBS (irritable bowel syndrome) Left knee pain Perforated ulcer PUD (peptic ulcer disease) Rheumatoid arthritis Sprain of medial collateral ligament of left knee Tobacco abuse Urinary frequency Wears glasses <David Crawford MD - Last Filed: 02/28/22 12:25> Surgical History Surgical History: Surgical History H/O abdominal surgery Perforated ulcer repair H/O: hysterectomy History of cholecystectomy History of Wolf-en-Y gastric bypass Hx of gastric bypass <David Crawford MD - Last Filed: 02/28/22 12:25> Family History Family History: Family History Father Hypertension Family history of pancreatic cancer High cholesterol Mother Cerebrovascular accident Other Asthma Cervical cancer Depression Family history of allergic disorder Family history of c
[2022-02-27] MEDS: HYDROmorphone HCL INJ (*CRX) 1 MG/ML SYR IV PUSH (20:27)
[2022-02-27] MEDS: SODIUM CHLORIDE 0.9% IV 1,000 ML 999 ML IV CONT (20:30)
[2022-02-27] MEDS: BELLADONNA ALK/PHENOB ELIX 10 ML, MAG HYDROX/ALUMINUM HYD/SIMETH 30 ML, LIDOCAINE HCL 2... PO (20:32)
[2022-02-27] MEDS: MORPHINE SULFATE (*CRX) 4 MG/ML INJ IV PUSH (20:58)
[2022-02-27] MEDS: HYDROcodone/acetaminophen (*CRX) 10-325 MG TABLET 1 TAB PO (22:23)
[2022-02-27 23:51] VITALS: BP 106/42; PULSE 69; RESP 16; O2SAT 96
--- NOTE | 2022-02-27 23:55 | PC.NURSE ---
Pt reported to her RN that she did not want to wait for CT scan report, and signed AMA form. ED MD aware. Pt ambulated out of ED with steady, even, unassisted gait.
== END 2022-02-27 23:51 | disposition left against medical advice (07) ==
PROVIDERS: Emergency Provider Emergency Medicine; PCP Emergency Medicine
DX: R10.13 Epigastric pain (principal); R74.01 Elevation of levels of liver transaminase levels; I10 Essential (primary) hypertension; M06.9 Rheumatoid arthritis, unspecified; K58.1 Irritable bowel syndrome with constipation; F32.A Depression, unspecified; F41.9 Anxiety disorder, unspecified; Z87.11 Personal history of peptic ulcer disease; Z98.84 Bariatric surgery status; K44.9 Diaphragmatic hernia without obstruction or gangrene
CPT/HCPCS: 36415; 74177; 80053; 81001; 83690; 85025; 96361; 96374; 96375; 99284; A9270; J1170; J2270; J7030; Q9967

== ENCOUNTER 2022-04-05 08:32 | Outpatient (CLI) | payer OTHER, SELFPAY ==
--- NOTE | ~2022-04-05 | US_ITS ---
EXAMINATION: US abdomen limited DATE: 04/05/2022 09:01 INDICATION: Elevated liver function tests TECHNIQUE: Multiple grayscale and Doppler ultrasound images of the abdomen were obtained. COMPARISON: 09/25/2021 FINDINGS: Bowel gas obscures visualization of the pancreas. The liver is normal with normal echogenic ity and echotexture. No surface nodularity. Normal hepatopetal flow in the main portal vein. The gall bladder is surgically absent. The normal common bile duct measures 4 mm. IMPRESSION: 1. No sonographic correlate for the patient's symptoms. Reviewed, dictated and finalized at location A.
[2022-04-05 09:26] LABS: Hematocrit 36.1 % (37.0-47.0); Hemoglobin 11.8 g/dL (12.0-15.0); Mean Corpuscular HGB Conc 32.7 g/dl (32-36); Mean Corpuscular Hemoglobin 30.3 pg (26-34); Mean Corpuscular Volume 92.8 fl (80-100); Mean Platelet Volume 10.5 fl (7.4-10.4); Platelet Count Result 158 k/mm3 (150-375); Red Blood Count 3.89 M/mm3 (4.2-5.4); Red Cell Distribution Width 13.5 % (11.5-14.5); White Blood Count 4.8 K/mm3 (4.5-10.0)
[2022-04-05 09:36] LABS: Lactic Acid 0.9 mmol/L (0.7-2.0)
[2022-04-05 09:51] LABS: Alanine Aminotransferase 19 U/L (6-35); Albumin Level 3.7 g/dL (3.5-5.1); Alkaline Phosphatase 60 U/L (38-126); Anion Gap 5 mmol/L (8-16); Aspartate Amino Transferase 24 U/L (14-36); Bilirubin,Total 0.4 mg/dL (0.2-1.3); Blood Urea Nitrogen 17 mg/dL (7-17); Calcium 8.5 mg/dL (8.4-10.2); Carbon Dioxide 23 mmol/L (22-30); Chloride 112 mmol/L (98-107); Creatine Kinase 57 U/L (30-135); Estimated Glomerular Filt Rate > 60; Glucose 93 mg/dL (65-110); Sodium 140 mmol/L (137-145)
[2022-04-05 10:04] LABS: Vitamin D 25 Hydroxy 43.8 ng/mL
[2022-04-05 10:17] LABS: Hepatitis B Surface Antigen Negative (Negative)
[2022-04-05 10:22] LABS: HAV RESULT Negative (Negative); Hepatitis B Core IgM Result Negative (Negative)
[2022-04-05 10:34] LABS: Hepatitis C Virus Antibody Negative (Negative)
[2022-04-07 16:00] LABS: GGT 13 U/L (3-70)
== END 2022-04-05 08:33 | disposition home or self-care (01) ==
PROVIDERS: PCP Emergency Medicine; Visit Provider Emergency Medicine
DX: R74.8 Abnormal levels of other serum enzymes (principal); R94.5 Abnormal results of liver function studies; F41.9 Anxiety disorder, unspecified; F32.9 Major depressive disorder, single episode, unspecified; I10 Essential (primary) hypertension; K21.9 Gastro-esophageal reflux disease without esophagitis; E55.9 Vitamin D deficiency, unspecified
CPT/HCPCS: 36415; 76705; 80053; 80074; 82306; 82550; 82977; 83605; 85027

== ENCOUNTER 2022-04-30 14:38 | Emergency (ER) | payer OTHER, SELFPAY ==
--- NOTE | ~2022-04-30 | XR_ITS ---
EXAMINATION: XR lumbar spine 2-3V DATE: 04/30/2022 15:39 INDICATION: Left lower back pain and sciatica TECHNIQUE: Anteroposterior and lateral views of the lumbar spine, and cone-down lateral view of the l umbosacral junction were obtained. COMPARISON: 07/28/2020 FINDINGS: There are 2 mm of anterolisthesis of L3 on L4 and 2 mm of retrolisthesis of L5 on S1. There is mild loss of intervertebral disc space height at L3-4 and L5-S1. The vertebral body heights are m aintained. Small degenerative osteophytes project from the anterior endplates of multiple vertebral b odies. There is mild facet joint osteoarthritis of the lower lumbar spine. No fracture is identified. Surgical clips are noted in the right upper quadrant and right pelvis. The bowel gas pattern is nons pecific. A bowel surgical anastomosis is noted in the left mid abdomen. IMPRESSION: 1. Mild lumbar spondylosis without acute findings. Reviewed, dictated and finalized at location B.
[2022-04-30 15:07] VITALS: BP 122/78; PULSE 76; RESP 16; TEMP 36.6; O2SAT 98
[2022-04-30 15:56] LABS: Basophils Percent Auto 0.3 % (0.2-1.2); Eosinophils Absolute Auto 0.1 K/mm3 (0-0.3); Eosinophils Percent Auto 1.9 % (0-4.4); Hemoglobin 12.5 g/dL (12.0-15.0); Immature Granulocyte Absolute 0.02 K/mm3 (0.00-0.031); Immature Granulocyte Percent A 0.3 % (0-0.5); Lymphocytes Absolute Auto 1.79 K/mm3 (0.9-3.2); Lymphocytes Percent Auto 31.1 % (18.3-44.2); Mean Corpuscular HGB Conc 33.8 g/dl (32-36); Mean Corpuscular Hemoglobin 31.2 pg (26-34); Mean Corpuscular Volume 92.3 fl (80-100); Mean Platelet Volume 9.9 fl (7.4-10.4); Monocytes Absolute Auto 0.3 K/mm3 (0.1-0.6); Monocytes Percent Auto 4.9 % (2.6-8.5); Neutrophils Absolute Auto 3.5 K/mm3 (1.3-6.7); Neutrophils Percent Auto 61.5 % (45.5-73.1); Platelet Count Result 197 k/mm3 (150-375); Red Blood Count 4.01 M/mm3 (4.2-5.4); White Blood Count 5.8 K/mm3 (4.5-10.0)
[2022-04-30 16:05] LABS: Anion Gap 12 mmol/L (8-16); Blood Urea Nitrogen 19 mg/dL (7-17); Carbon Dioxide 23 mmol/L (22-30); Chloride 105 mmol/L (98-107); Estimated CRCL calculation 72 ml/min; Estimated Glomerular Filt Rate > 60; Glucose 89 mg/dL (65-110); Potassium 3.8 mmol/L (3.4-5.0); Sodium 140 mmol/L (137-145)
[2022-04-30] MEDS: KETOROLAC 30 MG/ML VIAL (*BKC) IV PUSH (17:10)
[2022-04-30] MEDS: diazePAM INJ (*CRX) 10 MG/2 ML SYRINGE 2.5 MG IV PUSH (17:10)
[2022-04-30 17:15] VITALS: BP 114/50; PULSE 69; RESP 12; O2SAT 98
[2022-04-30 18:00] VITALS: BP 109/98; PULSE 74; RESP 14; O2SAT 99
--- NOTE | 2022-04-30 18:29 | ED.EXTPRO ---
HPI - Extremity Problem General Chief complaint: Extremity Problem,Nontraumatic Stated complaint: leg pain, both side, possible DVT Time Seen by Provider: 04/30/22 15:15 History of Present Illness HPI Narrative: Patient is a 56-year-old female who presents to the ER with leg pain. Bilateral. Starts in low back and moves into the thighs. She has burning in her thighs. Reports she is recently been working in her yard bending over and trimming [place]. She also went for a long walk yesterday. When she woke up today she started having this pain. Is worse with going from sitting to standing. Better with laying still. No fevers or chills or sweats. No urinary frequency urgency or dysuria. No saddle anesthesia or incontinence. She has had no trauma to her back. No history of sciatica. Related Data Home Medications Medication Instructions Recorded Confirmed losartan 50 mg tablet 50 mg PO QNOON 02/17/20 09/24/21 montelukast 10 mg tablet 10 mg PO QNOON 02/17/20 09/24/21 azelastine 137 mcg (0.1 %) nasal 2 spray intranasal DAILY PRN Runny 09/24/21 09/24/21 spray aerosol Nose dicyclomine 10 mg capsule 10 mg PO Q6H PRN abdominal cramping 09/24/21 09/24/21 diphenoxylate-atropine 2.5 1 tablet PO Q6H PRN Diarrhea 09/24/21 09/24/21 mg-0.025 mg tablet ergocalciferol (vitamin D2) 1,250 50,000 unit PO WEEKLY 09/24/21 09/24/21 mcg (50,000 unit) capsule fluticasone propionate 50 2 spray intranasal DAILY PRN 09/24/21 09/24/21 mcg/actuation nasal allergies spray,suspension oxybutynin chloride 10 mg 10 mg PO QNOON 09/24/21 09/24/21 tablet,extended release 24 hr pantoprazole 40 mg tablet,delayed 80 mg PO QNOON 09/24/21 09/24/21 release potassium 99 mg tablet 99 mg PO DAILY PRN muscle cramps 09/24/21 09/24/21 sertraline 100 mg tablet 100 mg PO QNOON 09/24/21 09/24/21 Allergies Allergy/AdvReac Type Severity Reaction Status Date / Time No Known Drug Allergies Allergy Unknown Unknown Verified 09/24/21 17:35 Review of Systems Review of Systems: All systems reviewed & are unremarkable except as noted in HPI and below Constitutional: Constitutional: Denies chills, Denies fatigue and Denies fever(s) ENT: Denies nasal congestion and Denies sore throat Gastrointestinal: Gastrointestinal: Denies nausea and Denies vomiting Musculoskeletal: Musculoskeletal: Reports back pain, Denies arthralgias and Denies joint swelling Integumentary/Breasts: Skin/Breast: Denies erythema and Denies rash Neurologic: Denies focal weakness and Denies numbness Comments: Paresthesias PMFSH Past Medical History Medical History (Updated 04/30/22 @ 18:33 by Ruddy Shelton MD) Anxiety Calculus of gallbladder with chronic cholecystitis without obstruction Chronic constipation Depression Encounter for surgical aftercare following surgery on the digestive system HTN (hypertension) IBS (irritable bowel syndrome) Left knee pain Perforated ulcer PUD (peptic ulcer disease) Rheumatoid arthritis Sprain of medial collateral ligament of left knee Tobacco abuse Urinary frequency Wears glasses Surgical History Surgical History H/O abdominal surgery Perforated ulcer repair H/O: hysterectomy History of cholecystectomy History of Wolf-en-Y gastric bypass Hx of gastric bypass Family History Family History Father Hypertension Family history of pancreatic cancer High cholesterol Mother Cerebrovascular accident Other Asthma Cervical cancer Depression Family history of allergic disorder Family history of congestive heart failure Heart disease Lung disease Neuropathy Pancreatic cancer Social History Social History Smoking packs per day: 0.5 Smoking cigarettes per day: 10.0 Years smoked: 40 Smoking pack-years: 20.00 Smoking status: Current every
[2022-04-30 18:55] VITALS: BP 124/72; PULSE 72; RESP 14; O2SAT 100
[2022-04-30] MEDS: HYDROcodone/acetaminophen (*CRX) 5-325 MG TABLET 1 TAB PO (18:56)
== END 2022-04-30 18:55 | disposition home or self-care (01) ==
PROVIDERS: Emergency Provider Emergency Medicine; PCP Emergency Medicine
DX: M54.42 Lumbago with sciatica, left side (principal); M54.41 Lumbago with sciatica, right side; I10 Essential (primary) hypertension; K58.9 Irritable bowel syndrome, unspecified; Z87.11 Personal history of peptic ulcer disease; M06.9 Rheumatoid arthritis, unspecified; F41.9 Anxiety disorder, unspecified; F32.A Depression, unspecified; Z98.84 Bariatric surgery status; Z90.710 Acquired absence of both cervix and uterus; F17.210 Nicotine dependence, cigarettes, uncomplicated; M47.816 Spondylosis without myelopathy or radiculopathy, lumbar region
CPT/HCPCS: 36415; 72100; 80048; 85025; 96374; 96375; 99284; A9270; J1885; J3360

== ENCOUNTER 2022-08-30 15:28 | Emergency (ER) | payer OTHER, SELFPAY ==
--- NOTE | ~2022-08-30 | XR_ITS ---
EXAMINATION: XR lumbar spine 2-3V DATE: 08/30/2022 16:08 INDICATION: Low back pain. Fall. TECHNIQUE: 3 views of lumbar spine were obtained. COMPARISON: Lumbar spine radiographs 04/30/2022 FINDINGS: There is 4 degrees dextrocurvature of lumbar spine. Vertebral body heights are normal. Ther e is mildly decreased disc height at L3-L4. There are endplate osteophytes at multiple levels. There is multilevel mild facet joint osteoarthritis. There are surgical clips in the abdomen. IMPRESSION: 1. Mild lumbar spondylosis. Reviewed, dictated and finalized at location A. PHONE SUPERVISOR IMPRESSION: 1. Mild lumbar spondylosis.
--- NOTE | ~2022-08-30 | XR_ITS ---
EXAMINATION: XR shoulder LT min 2V DATE: 08/30/2022 16:08 INDICATION: Left shoulder pain. Injury. TECHNIQUE: 4 views of left shoulder were obtained. COMPARISON: Left shoulder radiographs 07/28/2020 FINDINGS: There is widening of the acromioclavicular joint. No fracture. There is mild osteoarthritis of glenohumeral joint. There is severe osteoarthritis of acromioclavicular joint IMPRESSION: 1. Mild osteoarthritis of glenohumeral joint. 2. Chronic widening of acromioclavicular joint, which may be secondary to distal clavicle resection o r old acromioclavicular separation. Reviewed, dictated and finalized at location A. IS MANAGER IMPRESSION: 1. Mild osteoarthritis of glenohumeral joint. 2. Chronic widening of acromioclavicular joint, which may be secondary to dista l clavicle resection or old acromioclavicular separation.
[2022-08-30 15:32] VITALS: BP 138/58; PULSE 75; RESP 14; TEMP 37.1; O2SAT 96
--- NOTE | 2022-08-30 18:31 | ED.FALL ---
HPI - Fall General Chief Complaint: Fall Stated Complaint: fall, back injury Time Seen by Provider: 08/30/22 18:17 History of Present Illness HPI Narrative: Patient is a 57-year-old female who presents ER with low back pain and shoulder pain. Reports she was cleaning some steps when she slipped and fell onto her buttock. She has a bruise over her left lower back. She also bumped her left shoulder against the wall and has some pain in her shoulder. She maintains normal range of motion of the shoulder. No lower extremity numbness or tingling or weakness. No improvement with Tylenol or naproxen at home. Related Data Home Medications Medication Instructions Recorded Confirmed losartan 50 mg tablet 50 mg PO QNOON 02/17/20 09/24/21 montelukast 10 mg tablet 10 mg PO QNOON 02/17/20 09/24/21 azelastine 137 mcg (0.1 %) nasal 2 spray intranasal DAILY PRN Runny 09/24/21 09/24/21 spray aerosol Nose dicyclomine 10 mg capsule 10 mg PO Q6H PRN abdominal cramping 09/24/21 09/24/21 diphenoxylate-atropine 2.5 1 tablet PO Q6H PRN Diarrhea 09/24/21 09/24/21 mg-0.025 mg tablet ergocalciferol (vitamin D2) 1,250 50,000 unit PO WEEKLY 09/24/21 09/24/21 mcg (50,000 unit) capsule fluticasone propionate 50 2 spray intranasal DAILY PRN 09/24/21 09/24/21 mcg/actuation nasal allergies spray,suspension oxybutynin chloride 10 mg 10 mg PO QNOON 09/24/21 09/24/21 tablet,extended release 24 hr pantoprazole 40 mg tablet,delayed 80 mg PO QNOON 09/24/21 09/24/21 release potassium 99 mg tablet 99 mg PO DAILY PRN muscle cramps 09/24/21 09/24/21 sertraline 100 mg tablet 100 mg PO QNOON 09/24/21 09/24/21 Allergies Allergy/AdvReac Type Severity Reaction Status Date / Time No Known Drug Allergies Allergy Unknown Unknown Verified 09/24/21 17:35 Review of Systems Review of Systems: All systems reviewed & are unremarkable except as noted in HPI and below Constitutional: Constitutional: Denies chills and Denies fever(s) Musculoskeletal: Musculoskeletal: Reports back pain, Reports arthralgias, Denies joint swelling and Denies muscle cramps Integumentary/Breasts: Skin/Breast: Denies rash and Denies skin ulcer Neurologic: Denies syncope, Denies focal weakness and Denies numbness PMF Past Medical History Medical History (Updated 08/30/22 @ 18:49 by Ruddy Shelton MD) Anxiety Calculus of gallbladder with chronic cholecystitis without obstruction Chronic constipation Depression Encounter for surgical aftercare following surgery on the digestive system HTN (hypertension) IBS (irritable bowel syndrome) Left knee pain Perforated ulcer PUD (peptic ulcer disease) Rheumatoid arthritis Sprain of medial collateral ligament of left knee Tobacco abuse Urinary frequency Wears glasses Surgical History Surgical History H/O abdominal surgery Perforated ulcer repair H/O: hysterectomy History of cholecystectomy History of Wolf-en-Y gastric bypass Hx of gastric bypass Family History Family History Father Hypertension Family history of pancreatic cancer High cholesterol Mother Cerebrovascular accident Other Asthma Cervical cancer Depression Family history of allergic disorder Family history of congestive heart failure Heart disease Lung disease Neuropathy Pancreatic cancer Social History Social History Smoking packs per day: 0.5 Smoking cigarettes per day: 10.0 Years smoked: 40 Smoking pack-years: 20.00 Smoking status: Current every day smoker Tobacco type: cigarettes Second hand tobacco smoke exposure: Yes Alcohol intake: current Drinks per week: 30 Alcohol use details: Previous history of heavy alcohol usage. Substance use: current Substance use type: marijuana Gender identity (if verbalized by the patient): Female Spirit
[2022-08-30] MEDS: traMADol HCL (*CRX) 50 MG TABLET PO (18:38)
[2022-08-30 19:17] VITALS: BP 154/70; PULSE 70; RESP 12; O2SAT 98
== END 2022-08-30 19:18 | disposition home or self-care (01) ==
PROVIDERS: Emergency Provider Emergency Medicine; PCP Emergency Medicine
DX: S30.0XXA Contusion of lower back and pelvis, initial encounter (principal); S43.401A Unspecified sprain of right shoulder joint, initial encounter; I10 Essential (primary) hypertension; K58.9 Irritable bowel syndrome, unspecified; M06.9 Rheumatoid arthritis, unspecified; F41.9 Anxiety disorder, unspecified; F32.A Depression, unspecified; F17.210 Nicotine dependence, cigarettes, uncomplicated; Z90.710 Acquired absence of both cervix and uterus; Z87.11 Personal history of peptic ulcer disease; Z98.84 Bariatric surgery status; M47.816 Spondylosis without myelopathy or radiculopathy, lumbar region; M19.012 Primary osteoarthritis, left shoulder; W01.0XXA Fall on same level from slipping, tripping and stumbling without subsequent striking against object, initial encounter
CPT/HCPCS: 72100; 73030; 99284; A9270

== ENCOUNTER 2022-09-13 07:59 | Outpatient (CLI) | payer OTHER, SELFPAY ==
--- NOTE | ~2022-09-13 | US_ITS ---
EXAMINATION: US abdomen limited DATE: 09/13/2022 08:26 INDICATION: Elevated liver enzymes TECHNIQUE: Multiple grayscale and Doppler ultrasound images of the abdomen were obtained. COMPARISON: None available FINDINGS: Bowel gas obscures visualization of the pancreas. The visualized portions of the pancreas a re unremarkable. The liver is normal with normal echogenicity and echotexture. No surface nodularity. Normal hepatopetal flow in the main portal vein. The gallbladder is surgically absent. The normal co mmon bile duct measures 4 mm. IMPRESSION: 1. No sonographic correlate for the patient's symptoms. Reviewed, dictated and finalized at location A. ER OPERATOR
== END 2022-09-13 08:00 | disposition home or self-care (01) ==
PROVIDERS: PCP Emergency Medicine; Visit Provider Emergency Medicine
DX: R74.8 Abnormal levels of other serum enzymes (principal)
CPT/HCPCS: 76705

== ENCOUNTER 2023-12-29 17:17 | Emergency (ER) | payer OTHER, SELFPAY ==
[2023-12-29 17:24] VITALS: BP 130/66; PULSE 88; RESP 20; TEMP 36.1; O2SAT 99
--- NOTE | 2023-12-29 17:28 | ED.GENADULT ---
HPI - General Adult General Chief complaint: Unspecified Stated complaint: muscle spasms ,stomach and legs Time Seen by Provider: 12/29/23 17:28 Source: patient, RN notes reviewed and old records reviewed Mode of arrival: ambulatory Limitations: no limitations History of Present Illness HPI narrative: 58-year-old female presents to the [facility] with severe leg cramps and abdominal cramping, sharp abdominal pain, As well as lower back pain that she reports changes sides. Patient reports that it is intermittent, but getting worse. Started after she went for a walk yesterday. Patient has not taken anything for pain. Severity scale (1-10): >10 Related Data Home Medications Medication Instructions Recorded Confirmed losartan 50 mg tablet 50 mg PO QNOON 02/17/20 12/29/23 montelukast 10 mg tablet 10 mg PO QNOON 02/17/20 12/29/23 azelastine 137 mcg (0.1 %) nasal 2 spray intranasal DAILY PRN Runny 09/24/21 12/29/23 spray aerosol Nose dicyclomine 10 mg capsule 10 mg PO Q6H PRN abdominal cramping 09/24/21 12/29/23 ergocalciferol (vitamin D2) 1,250 50,000 unit PO WEEKLY 09/24/21 12/29/23 mcg (50,000 unit) capsule fluticasone propionate 50 2 spray intranasal DAILY PRN 09/24/21 12/29/23 mcg/actuation nasal allergies spray,suspension oxybutynin chloride 10 mg 10 mg PO QNOON 09/24/21 12/29/23 tablet,extended release 24 hr pantoprazole 40 mg tablet,delayed 80 mg PO QNOON 09/24/21 12/29/23 release potassium 99 mg tablet 99 mg PO DAILY PRN muscle cramps 09/24/21 09/24/21 sertraline 100 mg tablet 100 mg PO QNOON 09/24/21 12/29/23 bupropion HCl 150 mg tablet,12 hr 150 mg PO DAILY 12/29/23 12/29/23 sustained-release Allergies Allergy/AdvReac Type Severity Reaction Status Date / Time No Known Drug Allergies Allergy Unknown Unknown Verified 12/29/23 17:32 Review of Systems Review of Systems: All systems reviewed & are unremarkable except as noted in HPI and below Constitutional: Constitutional: Reports no additional constitutional complaints Eyes: Eyes: Reports no additional eye complaints ENT: Reports system reviewed and no additional complaints, except as documented Cardiovascular: Cardiovascular: Reports no additional cardiovascular complaints, Denies chest pain and Denies dyspnea Respiratory: Respiratory: Reports no additional respiratory complaints, Denies chest congestion, Denies cough and Denies dyspnea Gastrointestinal: Gastrointestinal: Reports as per HPI, Reports abdominal pain, Denies nausea and Denies vomiting Musculoskeletal: Musculoskeletal: Reports as per HPI, Denies arthralgias, Denies joint swelling, Reports muscle cramps, Denies numbness and Reports stiffness Integumentary/Breasts: Skin/Breast: Reports system reviewed and no additional complaints, except as docu Neurologic: Reports system reviewed and no additional complaints, except as documented Psychiatric: Psychiatric: Reports no additional psychiatric complaints Allergic/Immunologic: Allergic/Immunologic: Reports no additional allergic/immunologic complaints PMFSH Past Medical History Medical History Anxiety Calculus of gallbladder with chronic cholecystitis without obstruction Chronic constipation Depression Encounter for surgical aftercare following surgery on the digestive system HTN (hypertension) IBS (irritable bowel syndrome) Left knee pain Perforated ulcer PUD (peptic ulcer disease) Rheumatoid arthritis Sprain of medial collateral ligament of left knee Tobacco abuse Urinary frequency Wears glasses Surgical History Surgical History H/O abdominal surgery Perforated ulcer repair H/O: hysterectomy History of cholecystectomy History of Wolf-en-Y gastric bypass Hx of gastric bypass Family History Family History Father Hypertension Family history of pancrea
== END 2023-12-29 17:51 | disposition short-term general hospital (02) ==
LOC: EXPCOLL 17:21
PROVIDERS: Emergency Provider Nurse Practitioner; PCP Emergency Medicine
DX: R10.84 Generalized abdominal pain (principal); M79.605 Pain in left leg; M79.604 Pain in right leg; F17.210 Nicotine dependence, cigarettes, uncomplicated; F12.90 Cannabis use, unspecified, uncomplicated; I10 Essential (primary) hypertension; M06.9 Rheumatoid arthritis, unspecified; F41.9 Anxiety disorder, unspecified; F32.A Depression, unspecified
CPT/HCPCS: 99212; G0463